=== PATIENT | male | born 1930 | race Caucasian/White ===

== ENCOUNTER 2016-04-26 11:07 | Emergency (ER) | payer OTHER ==
[2016-04-26 12:27] LABS: BASOPHILS % 0.4 (0.0-1.5); EOSINOPHILS % 1.6 % (0.0-6.8); LYMPHOCYTES # 1.5 # k/uL (0.6-4.0); MEAN CORPUSCULAR HEMOGLOBIN 30.6 pg (28.0-34.0); MONOCYTES # 0.6 # k/uL (0.0-0.9); NEUTROPHILS # 4.2 # k/uL (1.4-7.7)
[2016-04-26 12:49] LABS: eGFR (African) > 60; eGFR (Non-African) > 60
[2016-04-26] MEDS ORDERED: cefTRIAXone SODIUM 1 GM VIAL IM ONE (14:55)
[2016-04-26] MEDS ORDERED: Lidocaine 1% 5ml(IM or SUTURE)(PAIN CLINIC) IJ ONE (14:55)
[2016-04-26 16:30] VITALS: BP 161/116
--- NOTE | 2016-04-26 19:47 | Diagnostic Imaging Report ---
[facility] [address] [facility].[address] [address] Report Submission Date: Apr 26, 2016 11:43:08 AM LONGWALL HEADGATE OPERATOR Patient Study Name: LIN MCCONNELL Date: Apr 26, 2016 11:27:46 AM LONGWALL HEADGATE OPERATOR Modality Type: CR Gender: M Description: CHEST : 34 Institution: [facility] Physician: PRAFUL CUNNINGHAM Chest - one-view Clinical history: Shortness of breath since this morning. Findings: Examination of the chest in single portable AP view 04/26/2016 1127 hours with comparison to examination of 04/05/2016 demonstrates bilateral pleural effusions with bibasilar infiltrates or atelectasis. Pulmonary vascular congestion appears decreased since the prior examination. The right hilum is prominent but without significant change. Cardiovascular and mediastinal silhouettes are stable. Impression: 1. Bilateral pleural effusions with bibasilar infiltrates or atelectasis. 2. Aortic atherosclerosis and left ventricular prominence. 3. Decreased congestion since 04/05/2016. Electronically signed on Apr 26, 2016 11:43:08 AM LONGWALL HEADGATE OPERATOR by: Justo ARAYA
--- NOTE | 2016-04-27 19:46 | ED Physician Documentation ---
Dyspnea - HISTORIAN Historian: patient - HPI Stated Complaint: shortness of breath at night time Chief Complaint: Dyspnea Additional Information: at night Onset: days ago (2 weeks) Duration: continues in ED Initiating Event: upper respiratory illness Severity: moderate Exacerbated By: laying flat Associated Symptoms: fever Further Comments: no - ROS CONST: no problems EYES/ENT: none GI/: none NEURO/PSYCH: denies: headache MS/SKIN/LYMPH: none - PAST HX Lung Disease: none Cardiac Disease: none PE Risk Factors: none Surgeries/Procedures: none Other History: other (a fib, depression, lipid) Allergies/Adverse Reactions: Allergies Allergy/AdvReac Type Severity Reaction Status Date / Time prednisone Allergy Intermediate confusion Verified 04/26/16 11:37 Home Medications: Ambulatory Orders Medication Instructions Recorded Acetaminophen [Tylenol] 325 - 650 mg PO Q4H PRN #0 tablet 03/30/16 Enoxaparin Sodium [Lovenox] 100 mg SQ D #4 disp.syrin 04/06/16 Warfarin Sodium [Coumadin] 5 mg PO [id number] #30 tablet 04/06/16 - SOCIAL HX Smoking History: non-smoker Alcohol Use: none Drug Use: none - FAMILY HX Family History: no significant history - VITAL SIGNS Vital Signs: Vital Signs Temp Pulse Resp BP Pulse Ox 94.3 F L 76 16 161/116 91 L 04/26/16 11:24 04/26/16 16:28 04/26/16 16:28 04/26/16 16:28 04/26/16 16:28 - REVIEWED ASSESSMENTS Nursing Assessment Reviewed: Yes Vitals Reviewed: Yes Progress - Results/Orders Results/Orders: cxr, pt/ptt/inr, trop, bnp, ua, cmp, cbc, ekg ordered - Progress Progress: pt. stable in er Critical Care Note - Critical Care Note Total Time (mins): 0 ED Results Lab/Radiology - Lab Results Lab Results: Lab Results 04/26/16 04/26/16 04/26/16 12:15 12:15 12:15 WBC RBC Hgb Hct MCV MCH MCHC RDW Plt Count Neut % (Auto) Lymph % (Auto) [place] % (Auto) Eos % (Auto) Baso % (Auto) Neut # Lymph # [place] # Eos # Baso # Reactive Lymphs % Reactive Lymphs # PT 22.2 Seconds H Seconds (9.7-11.5) INR 2.1 H (0.9-1.1) APTT 29.9 Seconds Seconds (24.5-32.8) Sodium 132 mmol/L L mmol/L (136-145) Potassium 4.1 mmol/L mmol/L (3.5-5.0) Chloride 99 mmol/L mmol/L (98-110) Carbon Dioxide 29 mmol/L mmol/L (20-32) BUN 13 mg/dL mg/dL (10-26) Creatinine 0.6 mg/dL mg/dL (0.4-1.5) Estimated Creat Clear 82 Est GFR ( Amer) > 60 (60 - ) Est GFR (Non-Af Amer) > 60 (60 - ) Glucose 106 mg/dL H mg/dL (70-99) Calcium 9.0 mg/dL mg/dL (8.5-10.5) Total Bilirubin 0.4 mg/dL mg/dL (0.2-1.2) AST 20 U/L U/L (0-41) ALT 13 U/L U/L (0-45) Alkaline Phosphatase 70 U/L U/L (46-116) Troponin I 0.03 ng/mL ng/mL (0.00-0.06) NT-Pro-B Natriuret Pep 6865.3 pg/mL H pg/mL (15.0-450.0) Total Protein 6.0 g/dL g/dL (6.0-8.5) Albumin 3.6 g/dL g/dL (3.0-5.5) 04/26/16 12:15 WBC 6.50 K/ul K/ul (4.00-12.00) RBC 3.86 M/ul L M/ul (3.90-5.20) Hgb 11.8 g/dL L g/dL (12.0-18.0) Hct 37.0 % % (37.0-53.0) MCV 95.8 fl fl (80.0-100.0) MCH 30.6 pg pg (28.0-34.0) MCHC 31.9 g/dL g/dL (30.0-36.0) RDW 13.4 % % (11.3-14.3) Plt Count 331 K/mm3 K/mm3 (130-400) Neut % (Auto) 63.8 % % (39.0-79.0) Lymph % (Auto) 23.4 % % (16.0-50.0) [place] % (Auto) 9.0 % % (0.0-11.0) Eos % (Auto) 1.6 % % (0.0-6.8) Baso % (Auto) 0.4 (0.0-1.5) Neut # 4.2 # k/uL # k/uL (1.4-7.7) Lymph # 1.5 # k/uL # k/uL (0.6-4.0) [place] # 0.6 # k/uL # k/uL (0.0-0.9) Eos # 0.1 # k/uL # k/uL (0.0-0.6) Baso # 0.0 # k/uL # k/uL (0.0-0.5) Reactive Lymphs % 2.0 % % (0.0-5.0) Reactive Lymphs # 0.1 # k/uL # k/uL (0.0-0.8) PT INR APTT Sodium Potassium Chloride Carbon Dioxide BUN Creatinine Estimated Creat Clear Est GFR ( Amer) Est GFR (Non-Af Amer) Glucose Calcium Total Bilirubin AST ALT Alkaline Phosphatase Troponin I NT-Pro-B Natriuret Pep Total Protein Albumin - Radiology Radiology Impressions: cxr shows bilateral pleural effusions - Orders Orders: ED Orders Category Date Time Status CHEST 1 VIEW [RAD] Routine Exams 04/26/16 Completed BNP [NT-proBNP] Routine Lab 04/26/16 12:15 Completed CBC/PLATELET/DIFF Routine Lab 04/26/16 12:15 Completed CMP Routine Lab 04/26/16 12:15 Completed PT-INR Routine Lab 04/26/16 12:15 Completed PTT Routine Lab 04/26/16 12:15 Completed TROPONIN I (cTnI) Routine Lab 04/26/16 12:15 Completed Lidocaine 1% 5ml(IM or SUTURE) [Xylocaine] Med 04/26/16 14:55 Discontinued 50 mg IJ NOW ONE cefTRIAXone SODIUM [Rocephin] Med 04/26/16 14:55 Discontinued 1 gm IM NOW ONE EKG WITH COMPARISON Routine Ther 04/26/16 Ordered Dyspnea Physical Exam - EXAM General Appearance: no acute distress, alert EENT: eye inspection normal, ENT inspection normal, pharynx normal, no signs of dehydration, GERMAINE, no nystagmus, TM's nml Neck: nml inspection Respiratory: no resp. distress, rales (bases) CVS: reg. rate & rhythm, no murmur Abdomen: non-tender, no organomegaly, no distention Skin: color nml, no rash Extremities: non-tender, normal range of motion Neuro/Psych: oriented x3, CN's nml as tested, motor nml, sensation nml, mood/ affect nml Discharge Clincal Impression: Pneumonia Qualifiers: Pneumonia type: due to unspecified organism Laterality: bilateral Lung location : lower lobe of lung Qualified Code(s): J18.9 - Pneumonia, unspecified organism Referrals: Shakeel Ellis MD [Primary Care Provider] - 2 Days Additional Instructions: given rocephin im in er, home with scripts Home Medications: Ambulatory Orders Acetaminophen [Tylenol] 325 - 650 mg PO Q4H PRN #0 tablet 03/30/16 Enoxaparin Sodium [Lovenox] 100 mg SQ D #4 disp.syrin 04/06/16 Warfarin Sodium [Coumadin] 5 mg PO [id number] #30 tablet 04/06/16 Comments: discharged home with scripts Condition: Stable Disposition: 01 HOME, SELF-CARE Decision to Admit: NO Decision Time: 16:20
== END 2016-04-26 15:50 | disposition home or self-care (01) ==
LOC: ED 11:07
DX: J18.9 Pneumonia, unspecified organism (principal)
CPT/HCPCS: 71010; 80053; 83880; 84484; 85025; 85610; 85730; J0696; 96372; 99283

== ENCOUNTER 2016-04-29 15:16 | Emergency (ER) | payer OTHER ==
[2016-04-29 15:36] LABS: BASOPHILS % 0.4 (0.0-1.5); EOSINOPHILS % 1.9 % (0.0-6.8); LYMPHOCYTES # 1.5 # k/uL (0.6-4.0); MEAN CORPUSCULAR HEMOGLOBIN 30.4 pg (28.0-34.0); MONOCYTES # 0.7 # k/uL (0.0-0.9); NEUTROPHILS # 4.7 # k/uL (1.4-7.7)
[2016-04-29 15:53] LABS: eGFR (African) > 60; eGFR (Non-African) > 60
--- NOTE | 2016-04-29 15:53 | ED Physician Documentation ---
General Adult - HISTORIAN Historian: patient, other (old records) - HPI Stated Complaint: "Shortness of Breath" Chief Complaint: General Adult Additional Information: Says he still has pneumonia. Can hear noises when he breathes at night. Saw Dr. Renee on 04/27 and started amoxicillin. Pulse ox 95% on RA. Talks non-stop. - ROS CONST: denies: fever - PAST HX Past History: CHF Allergies/Adverse Reactions: Allergies Allergy/AdvReac Type Severity Reaction Status Date / Time prednisone Allergy Intermediate confusion Verified 04/26/16 11:37 Home Medications: Ambulatory Orders Medication Instructions Recorded Acetaminophen [Tylenol] 325 - 650 mg PO Q4H PRN #0 tablet 03/30/16 Amoxicillin/Potassium Clav 1 each PO DAILY 04/29/16 [Augmentin 875-125 Tablet] Furosemide [Furosemide] 20 mg PO DAILY 04/29/16 Warfarin Sodium [Warfarin Sodium] 2 mg PO DAILY 04/29/16 - SOCIAL HX Smoking History: non-smoker - FAMILY HX Family History: No - VITAL SIGNS Vital Signs: Vital Signs Temp Pulse Resp BP Pulse Ox 97 F L 94 H 18 162/93 96 04/29/16 15:20 04/29/16 15:20 04/29/16 15:20 04/29/16 15:20 04/29/16 15:20 - REVIEWED ASSESSMENTS Nursing Assessment Reviewed: Yes Vitals Reviewed: Yes Progress - Progress Progress: Portable view of chest Clinical history: Short of breath Findings: Comparison is made to prior study. The heart size is mildly enlarged with unchanged mild pulmonary venous congestion. There unchanged bibasal atelectasis with increasing right pleural effusion. There is an unchanged left pleural effusion. No pneumothorax. Bilateral pleural effusions with bibasal atelectasis. The effusion has increased on the right Electronically signed on Apr 29, 2016 3:50:23 PM TUNE UP MECHANIC by: Israel Nolan [id number], discussed with Dr. Ellis ED Results Lab/Radiology - Lab Results Lab Results: Lab Results 04/29/16 15:28 WBC 7.20 K/ul K/ul (4.00-12.00) RBC 4.08 M/ul M/ul (3.90-5.20) Hgb 12.4 g/dL g/dL (12.0-18.0) Hct 39.3 % % (37.0-53.0) MCV 96.2 fl fl (80.0-100.0) MCH 30.4 pg pg (28.0-34.0) MCHC 31.6 g/dL g/dL (30.0-36.0) RDW 13.5 % % (11.3-14.3) Plt Count 340 K/mm3 K/mm3 (130-400) Neut % (Auto) 65.8 % % (39.0-79.0) Lymph % (Auto) 20.7 % % (16.0-50.0) [place] % (Auto) 10.0 % % (0.0-11.0) Eos % (Auto) 1.9 % % (0.0-6.8) Baso % (Auto) 0.4 (0.0-1.5) Neut # 4.7 # k/uL # k/uL (1.4-7.7) Lymph # 1.5 # k/uL # k/uL (0.6-4.0) [place] # 0.7 # k/uL # k/uL (0.0-0.9) Eos # 0.1 # k/uL # k/uL (0.0-0.6) Baso # 0.0 # k/uL # k/uL (0.0-0.5) Reactive Lymphs % 1.3 % % (0.0-5.0) Reactive Lymphs # 0.1 # k/uL # k/uL (0.0-0.8) - Orders Orders: ED Orders Category Date Time Status CHEST 1 VIEW [RAD] Stat Exams 04/29/16 Ordered BNP [NT-proBNP] Stat Lab 04/29/16 15:28 Received CBC/PLATELET/DIFF Routine Lab 04/29/16 15: Completed CMP Routine Lab 04/29/16 15: Received URINALYSIS Routine Lab 04/29/16 Ordered General Adult Physical Exam - PHYSICAL EXAM GENERAL APPEARANCE: smells of urine. shoes caked with dirt EENT: eye inspection normal, ENT inspection normal, pharynx normal NECK: normal inspection, supple RESPIRATORY: no resp distress, breath sounds normal CVS: reg rate & rhythm, heart sounds normal, no murmur ABDOMEN: soft, normal bowel sounds, non-tender RECTAL: deferred BACK: normal inspection SKIN: warm/dry, normal color EXTREMITIES: no evidence of injury, edema (1+ ameena ankles, R>L) NEURO: CN's nml as tested, motor nml, sensation nml, cognition normal Discharge Clincal Impression: Pneumonia Qualifiers: Pneumonia type: due to unspecified organism Laterality: bilateral Lung location : lower lobe of lung Qualified Code(s): J18.9 - Pneumonia, unspecified organism Additional Instructions: Continue the amoxicillin. Follow up with Dr. Ellis as needed. Home Medications: Ambulatory Orders Acetaminophen [Tylenol] 325 - 650 mg PO Q4H PRN #0 tablet 03/30/16 Amoxicillin/Potassium Clav [Augmentin 875-125 Tablet] 1 each PO DAILY 04/29/16 Furosemide [Furosemide] 20 mg PO DAILY 04/29/16 Warfarin Sodium [Warfarin Sodium] 2 mg PO DAILY 04/29/16 Condition: Fair Disposition: HOME, SELF-CARE Decision to Admit: NO Decision Time: 16:07
[2016-04-29 16:55] VITALS: BP 148/68
--- NOTE | 2016-04-29 17:05 | Diagnostic Imaging Report ---
~ [facility] [address] [facility] [address] [place], [place]. [address] ~ ~ ~ ~ Report Submission Date: Apr 29, 2016 3:50:23 PM PROGRAM ADMIN Patient ~ Study Name: LIN MCCONNELL ~ Date: Apr 29, 2016 3:37:21 PM PROGRAM ADMIN ~ Modality Type: CR Gender: M ~ Description: CHEST : 32 ~ Institution: [facility] Physician: ROBERT CEDENO ~ ~ ~ ~ Portable view of chest Clinical history: Short of breath Findings: Comparison is made to prior study. The ~heart size is mildly enlarged with unchanged mild pulmonary venous congestion. There unchanged bibasal atelectasis with increasing right pleural effusion. There is an unchanged left pleural effusion. No pneumothorax. Bilateral pleural effusions with bibasal atelectasis. The effusion has increased on the right ~ Electronically signed on Apr 29, 2016 3:50:23 PM PROGRAM ADMIN by: Israel ARAYA
== END 2016-04-29 16:35 | disposition home or self-care (01) ==
LOC: ED 15:16
DX: J18.9 Pneumonia, unspecified organism (principal)
CPT/HCPCS: 71010; 80053; 83880; 85025; 99284

== ENCOUNTER 2016-05-14 16:24 | Emergency (ER) | payer OTHER ==
--- NOTE | 2016-05-14 16:34 | ED Physician Documentation ---
General Adult - HISTORIAN Historian: patient, paramedics - HPI Stated Complaint: fall Chief Complaint: General Adult Onset: minutes Timing: better Severity: mild Further Comments: yes (Pt is an 86 yo male who slid from his chair at home and called EMS for lift assist. EMS found pt's environment to be extremely uncared for. Pt had numerous cats and the house appeared not to have been cleaned for ages. Pt was brought to ER in order to try to facilitate change in pt's unsafe environment and living conditions. Pt c/o chronic generalized muscle ache/ arthritis. No sob, chest pain or other complaintss. Pt has a decubitus ulcer on his R buttock. Pt states that he has numerous home health services, but these appear inadequate per EMT report.) - ROS CONST: other (pt denies) EYES/ENT: none CVS/RESP: none GI/: none MS/SKIN/LYMPH: other (decubitus ulcer buttock; generalized joint pain/arthritis) - PAST HX Past History: other (GERD, Anxiety, OA, BPH, decubitus ulcer, PE) Allergies/Adverse Reactions: Allergies Allergy/AdvReac Type Severity Reaction Status Date / Time prednisone Allergy Intermediate confusion Verified 05/14/16 16:33 Home Medications: Ambulatory Orders Medication Instructions Recorded Acetaminophen [Tylenol] 325 - 650 mg PO Q4H PRN #0 tablet 03/30/16 Amoxicillin/Potassium Clav 1 each PO DAILY 04/29/16 [Augmentin 875-125 Tablet] Furosemide [Furosemide] 20 mg PO DAILY 04/29/16 Warfarin Sodium [Warfarin Sodium] 2 mg PO DAILY 04/29/16 - SOCIAL HX Smoking History: non-smoker Alcohol Use: none Drug Use: none - FAMILY HX Family History: Yes (CAD) - VITAL SIGNS Vital Signs: Vital Signs Temp Pulse Resp BP Pulse Ox 148/68 04/29/16 16:35 - REVIEWED ASSESSMENTS Nursing Assessment Reviewed: Yes Vitals Reviewed: Yes Progress - Progress Progress: Report on pt living condition called to Adult Abuse and Neglect Hotline. . Case d/w Pamela who will initiate investigation. Decub ulcer dressed in ER. Long discussion with pt encouraging move to prison. d/w pcp. General Adult Physical Exam - PHYSICAL EXAM GENERAL APPEARANCE: unkempt EENT: eye inspection normal, pharynx normal, other (poor dentition) NECK: normal inspection, supple RESPIRATORY: no resp distress, chest non-tender, breath sounds normal CVS: reg rate & rhythm, heart sounds normal ABDOMEN: soft, no organomegaly, normal bowel sounds BACK: normal inspection, no CVA tenderness SKIN: other (2nd degree decubitus ulcer on R buttock, 2 cm with 8 cm erythema surrounding ulcer) EXTREMITIES: non-tender, normal range of motion NEURO: oriented X3, motor nml, sensation nml Discharge Clincal Impression: Fall from chair Qualifiers: Encounter type: initial encounter Qualified Code(s): W07.XXXA - Fall from chair , initial encounter Decubitus ulcer Qualifiers: Pressure ulcer location: buttock Pressure ulcer stage: stage 2 Laterality: right Qualified Code(s): L89.312 - Pressure ulcer of right buttock, stage 2 Referrals: Shakeel Ellis MD [Primary Care Provider] - Home Medications: Ambulatory Orders Acetaminophen [Tylenol] 325 - 650 mg PO Q4H PRN #0 tablet 03/30/16 Amoxicillin/Potassium Clav [Augmentin 875-125 Tablet] 1 each PO DAILY 04/29/16 Furosemide [Furosemide] 20 mg PO DAILY 04/29/16 Warfarin Sodium [Warfarin Sodium] 2 mg PO DAILY 04/29/16 Condition: Stable Disposition: HOME, SELF-CARE Decision to Admit: NO Decision Time: 17:59
[2016-05-14 18:18] VITALS: BP 133/80
== END 2016-05-14 18:15 | disposition home or self-care (01) ==
LOC: ED 16:24
DX: L89.312 Pressure ulcer of right buttock, stage 2 (principal); W07.XXXA Fall from chair, initial encounter; Y93.9 Activity, unspecified; Y99.9 Unspecified external cause status
CPT/HCPCS: 99282; 99283

== ENCOUNTER 2016-05-18 17:14 | Inpatient (IN) | payer OTHER ==
[2016-05-18 18:00] LABS: AMORPHOUS SEDIMENT,UR FEW (NEGATIVE); APPEARANCE,URINE CLEAR (CLEAR); COLOR,URINE YELLOW (YELLOW); OCCULT BLOOD,URINE NEGATIVE (NEGATIVE); PH URINE 6.5 (5.0 - 8.0)
--- NOTE | 2016-05-18 18:13 | ED Physician Documentation ---
Male Genitourinary Problems - HISTORIAN Historian: patient - HPI Stated Complaint: Urinary Retention Chief Complaint: Male Genitourinary Problems Onset: days ago (prog passt 4-5 days) Duration: continues in ED, worse Context: other (pt reportedly sits in house most of day and noct w/veryu many cats-house reportedly quite unsanitary. pt recently in [facility] DR MIRANDA for pneumonia. has minimal sob now.). 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 denies: diabetes Type 1 Surgeries/Procedures: other (pcta) - SOCIAL HX Smoking History: non-smoker Alcohol Use: none Drug Use: none - FAMILY HX Family History: none - REVIEWED ASSESSMENTS Nursing Assessment Reviewed: Yes Vitals Reviewed: Yes - HPI Additional Information: progressive dysuria unable today. sig leg edema prog to genital area-scrotal and penile edema. suárez cath prod 800cc urine-pt relates scanty yesterday. ( Bobo Kelley) - PAST HX Allergies/Adverse Reactions: Allergies Allergy/AdvReac Type Severity Reaction Status Date / Time prednisone Allergy Intermediate confusion Verified 06/10/16 22:14 Home Medications: Ambulatory Orders Medication Instructions Recorded Furosemide [Furosemide] 20 mg PO DAILY 04/29/16 Warfarin Sodium [Warfarin Sodium] 2 mg PO DAILY 04/29/16 Metoprolol Tartrate [Lopressor] 12.5 mg PO D #30 tablet 05/24/16 Warfarin Sodium [Coumadin] 2.5 mg PO 1800 #30 tablet 05/24/16 - VITAL SIGNS Vital Signs: Vital Signs Temp Pulse Resp BP Pulse Ox 98.7 F 90 22 120/62 98 05/24/16 13:33 05/24/16 13:33 05/24/16 13:33 05/24/16 13:33 05/24/16 14:00 (WILIAN JONES) (Bobo Kelley) Progress - Progress Progress: BNP 9800+. Na 130. WBC 12.8 1919, spoke with Dr. Miranda. Will admit pt to Dr. Miranda. (WILIAN JONES) care turned to WILIAN 1910 HRS. discussed case w/ her. (Bobo Kelley) Male Genitourinary Problems - EXAM General Appearance: moderate distress. No: anxious Abdomen: non-tender EENT: eye inspection normal (poor genl hygiene-reported poor nutritional and erratec food intake. has home health approx q/week) Neck: nml inspection. No: lymphadenopathy Respiratory: no resp distress, breath sounds normal (mild basal rales) CVS: reg rate & rhythm, heart sounds normal Back: non-tender Extremities: no calf tenderness, pelvis stable. No: normal range of motion, non -tender, normal inspection, no pedal edema, normal capillary refill Neuro/Psych: motor nml, sensation nml, mood/affect nml, cognition normal Skin: warm/dry, normal color, other (prev mentioned severe dep edema up to hips- -apparently sits w/o exercise most all the time.). No: cyanosis, diaphoresis Discharge Home Medications: Ambulatory Orders Furosemide [Furosemide] 20 mg PO DAILY 04/29/16 Warfarin Sodium [Warfarin Sodium] 2 mg PO DAILY 04/29/16 Metoprolol Tartrate [Lopressor] 12.5 mg PO D #30 tablet 05/24/16 Warfarin Sodium [Coumadin] 2.5 mg PO 1800 #30 tablet 05/24/16 Condition: Stable Disposition: HOME HEALTH SERVICE
[2016-05-18 18:15] LABS: BASOPHILS % 0.1 (0.0-1.5); MEAN CORPUSCULAR HEMOGLOBIN 29.7 pg (28.0-34.0); MONOCYTES # 0.6 # k/uL (0.0-0.9); MONOCYTES % 4.8 % (0.0-11.0)
[2016-05-18 18:33] LABS: eGFR (African) > 60; eGFR (Non-African) > 60
[2016-05-18] MEDS ORDERED: FUROSEMIDE 20 MG/2 ML VIAL IVP ONE (19:20)
[2016-05-18] MEDS ORDERED: FUROSEMIDE 40 MG/4 ML VIAL ONE (19:22)
[2016-05-18] MEDS ORDERED: FUROSEMIDE 20 MG/2 ML VIAL ONE (19:23)
[2016-05-18] MEDS: SALINE FLUSH 10 ML DISP.SYRIN IV SCH (19:33)
[2016-05-18] MEDS ORDERED: WARFARIN SODIUM 1 MG TABLET PO ONE (19:44)
--- NOTE | 2016-05-18 20:02 | Diagnostic Imaging Report ---
[facility] [address] [facility].[address] [address] Report Submission Date: May 18, 2016 7:37:13 PM PERFORMANCE ENGINEER Patient Study Name: LIN MCCONNELL Date: May 18, 2016 7:28:18 PM PERFORMANCE ENGINEER Modality Type: CR Gender: M Description: CHEST : 34 Institution: [facility] Physician: ROBERT CEDENO Chest -one view CLINICAL HISTORY: Congestive heart failure. FINDINGS: Examination of the chest in single portable AP view 05/18/2016 1928 hr with comparison to examination 04/29/2016 demonstrates bilateral pleural effusions with bibasilar atelectasis. The effusions appear slightly decreased when compared to the prior examination. Pulmonary vascular congestion with perivascular and peribronchial cuffing appears slightly worse since the prior study. Cardiovascular and mediastinal silhouettes are stable. IMPRESSION: Slight decrease in pleural effusions with increasing pulmonary vascular congestion. Findings are consistent with congestive heart failure. Electronically signed on May 18, 2016 7:37:13 PM PERFORMANCE ENGINEER by: Justo ARAYA
[2016-05-18 21:21] VITALS: BMI 23.9
[2016-05-19] MEDS ORDERED: SALINE FLUSH 10 ML DISP.SYRIN IVF ONE ×3 (04:09→09:08)
[2016-05-19] MEDS ORDERED: FUROSEMIDE 20 MG TABLET PO ONE (04:09)
[2016-05-19] MEDS ORDERED: WARFARIN SODIUM 1 MG TABLET PO ONE ×2 (04:10→19:43)
[2016-05-19] MEDS: SALINE FLUSH 10 ML DISP.SYRIN IV SCH ×2 (08:56→23:48)
[2016-05-19] MEDS: BUSPIRONE HCL 5 MG TABLET PO SCH ×3 (08:56→17:46)
[2016-05-19] MEDS: MONTELUKAST SODIUM 10 MG TABLET PO SCH (08:57)
[2016-05-19] MEDS ORDERED: WARFARIN SODIUM 2 MG PO SCH (09:00)
[2016-05-19] MEDS ORDERED: FUROSEMIDE 20 MG TABLET PO SCH (09:00)
[2016-05-19] MEDS ORDERED: FUROSEMIDE 20 MG/2 ML VIAL ONE (09:01)
[2016-05-19] MEDS: FUROSEMIDE 20 MG/2 ML VIAL IVP SCH ×2 (09:10→23:47)
[2016-05-19 09:21] LABS: eGFR (African) > 60; eGFR (Non-African) > 60
[2016-05-19] MEDS: traMADol HCL 50 MG TABLET PO PRN (12:55)
[2016-05-19] MEDS: ACETAMINOPHEN 500 MG TABLET PO PRN (12:55)
--- NOTE | 2016-05-19 15:59 | History and Physical Report ---
History of Present Illnes - History of Present Illness Reason for Visit: Dyspnea History of Present Illness: 86-yo white male who has had a history of increase swelling and pedal edema over the last month. Patient states that he has been having some increase SOB and ESCOTO over the last several day. Has been having some orthopnic symptoms. Patient denies any chest pain or pressure. He has not had any previous history of CHF. Patient does have his feet hanging down a lot and it was felt that the pedal edema was dependent in nature. Patient started to have some swelling to his scrotum and penis. He states that this was making it difficult for him to urinate and subsequently came to the ED for further evaluation and treatment. In the ED he was found to have some CHF and was hypoxic and admitted for further evaluation and treatment. - Past Medical History Cardiac: denies: CAD, CHF, HTN Pulmonary: Pulmonary embolus. denies: Asthma, Bronchitis, COPD, Previously intubated, Pneumonia, Sleep Apnea, Other Gastrointestinal: GERD Psych: Anxiety Musculoskeletal: Osteoarthritis ENT: Allergic rhinitis Renal/: Benign prostatic enlarg. - Past Surgical History Past Surgical History: Hernia Repair (Inguinal), TURP, Other (angioplasty) - Past Family History Mother Family History: CAD, (85) Father Family History: Cancer (? gastric), (62) Brother 1 Family History: None - Past Social History Smoke: No Alcohol: None Drugs: None Lives: With Family (Brother) - Health Maintenance Health Maintenance: Pneumococcal Vaccine (07/18/2005) Influenza Vaccine: No Pneumonia Vaccine: Yes Resuscitation Status: Resusciation Status Resuscitation Status Full Code - Unable to Obtain History Unable to Obtain: No Review of Systems - Review of Systems Constitutional: Weakness (generalized). negative: Fever, Chills Eyes: negative: pain, vision change ENT: negative: Ear Pain, Ear Discharge, Nose Pain, Nose Discharge, Nose Congestion, Throat Pain, Throat Swelling Respiratory: Cough, Dry, Shortness of Breath, SOB with Excertion. negative: Hemoptysis, Pleuritic Pain, Sputum, Wheezing Cardiovascular: Edema. negative: Chest Pain, Palpitations, Orthopnea, Paroxysmal Noc. Dyspnea Gastrointestinal: negative: Nausea, Vomiting, Abdominal Pain, Diarrhea, Constipation, Melena, Hematochezia Genitourinary: negative: Dysuria, Frequency Musculoskeletal: negative: Neck Pain, Shoulder Pain Skin: negative: Rash Neurological: Weakness, Confusion. negative: Numbness, Incoordination, Change in Speech - Medications/Allergies Allergies/Adverse Reactions: Allergies Allergy/AdvReac Type Severity Reaction Status Date / Time prednisone Allergy Intermediate confusion Verified 06/10/16 22:14 Current Inpatient Medications: Current Inpatient Medications Acetaminophen (Tylenol Extra Strength) 500 mg PO TID PRN PRN Reason: Fever >101 Last Admin: 05/19/16 12:55 Dose: 500 mg Buspirone HCl (Buspar) 5 mg PO TID [facility] Last Admin: 05/19/16 13:13 Dose: 5 mg Furosemide (Lasix) 20 mg IVP Q12 [facility] Last Admin: 05/19/16 09:10 Dose: 20 mg Miscellaneous (Warfarin Sodium [Warfarin Sodium]) 2 mg PO DAILY [facility] Last Admin: 05/19/16 13:14 Dose: Not Given Montelukast Sodium (Singulair) 10 mg PO DAILY [facility] Last Admin: 05/19/16 08:57 Dose: 10 mg Sodium Chloride (Normal Saline Flush) 3 ml IV BID [facility] Last Admin: 05/19/16 08:56 Dose: 3 ml Tramadol HCl (Ultram) 50 mg PO Q4 PRN PRN Reason: PAIN Last Admin: 05/19/16 12:55 Dose: 50 mg Exam - Exam Vital Signs: Vital Signs (72 hours) 05/18/16 05/18/16 05/18/16 19:46 20:00 20:25 Temperature 98.0 F Pulse Rate 92 H Pulse Rate [ 78 78 Right Pulse ox] Respiratory 18 18 Rate Blood Pressure 128/97 128/97 [Left Arm] Blood Pressure 152/87 [Right Arm] O2 Sat by Pulse 92 92 Oximetry 05/18/16 05/18/16 05/18/16 21:00 22:00 23:00 Temperature Pulse Rate 94 H 98 H 98 H Pulse Rate [ Right Pulse ox] Respiratory Rate Blood Pressure [Left Arm] Blood Pressure [Right Arm] O2 Sat by Pulse Oximetry 05/18/16 05/18/16 05/19/16 23:25 23:46 00:00 Temperature 98.4 F Pulse Rate 95 H Pulse Rate [ 84 Right Pulse ox] Respiratory Rate Blood Pressure 147/82 [Left Arm] Blood Pressure [Right Arm] O2 Sat by Pulse 92 92 Oximetry 0205/19/16 05/19/16 01:00 02:00 03:00 Temperature 98.0 F Pulse Rate 90 94 H 99 H Pulse Rate [ 84 Right Pulse ox] Respiratory Rate Blood Pressure 128/60 [Left Arm] Blood Pressure [Right Arm] O2 Sat by Pulse 94 Oximetry 05/19/16 05/19/16 05/19/16 04:00 05:00 05:43 Temperature 98.3 F Pulse Rate 97 H 93 H Pulse Rate [ 99 H Right Pulse ox] Respiratory 18 Rate Blood Pressure 133/70 [Left Arm] Blood Pressure [Right Arm] O2 Sat by Pulse 97 Oximetry 05/19/16 05/19/16 05/19/16 05:58 07:00 08:00 Temperature Pulse Rate 82 78 96 H Pulse Rate [ 90 Right Pulse ox] Respiratory 18 Rate Blood Pressure [Left Arm] Blood Pressure [Right Arm] O2 Sat by Pulse 97 Oximetry 05/19/16 05/19/16 05/19/16 09:00 10:00 11:00 Temperature 97.3 F L Pulse Rate 91 H 79 85 Pulse Rate [ 79 79 Right Pulse ox] Respiratory 20 20 Rate Blood Pressure 126/66 [Left Arm] Blood Pressure [Right Arm] O2 Sat by Pulse 96 96 Oximetry 05/19/16 05/19/16 05/19/16 12:00 13:00 14:00 Temperature 96.6 F L Pulse Rate 88 95 H 99 H Pulse Rate [ 99 H Right Pulse ox] Respiratory 20 Rate Blood Pressure 99/57 [Left Arm] Blood Pressure [Right Arm] O2 Sat by Pulse 99 Oximetry 05/19/16 05/19/16 14:30 15:47 Temperature Pulse Rate 99 H 85 Pulse Rate [ 99 H Right Pulse ox] Respiratory 20 Rate Blood Pressure [Left Arm] Blood Pressure [Right Arm] O2 Sat by Pulse 99 Oximetry General: Alert, Oriented to Person, Oriented to Place, Oriented to Time, Cooperative, Mild distress HEENT: Atraumatic, PERRLA, Mouth Mucous membr. moist/[place], Nose Mucous membr. moist/[place]. No: Hearing Grossly Normal (decreased) Neck: Normal Range of Motion. No: Stridor, Rigidity, Lymphadenopathy Carotids: WNL Thyroid: WNL Lungs: Normal air movement, Speaks full Sentences, Rales (1/2 way up posterior lungs bilaterally). No: Wheezes, Rhonchi Cardiovascular: Regular rate, Normal S1, Normal S2, No murmurs. No: Gallops, Rubs, Murmur Abdomen: Normal bowel sounds, Soft, No tenderness, No hepatospenomegaly, No masses Male Genitourinary: Scrotal Edema, Penile Edema Integumentary: Normal, [place], Warm, Dry Extremities: No clubbing, No cyanosis, Other (2-3 plus edema) Neurological: Normal speech, Strength Equal Bilat, Normal tone, Sensation intact , Cranial nerves 3-12 NL, Reflexes 2+. No: Normal gait Psych/Mental Status: Mental status NL, Mood NL, Appropriate Affect, Intact Judgment - Laboratory Results Laboratory Results: Laboratory Results 05/19/16 05/19/16 09:00 09:00 Sodium 142 Potassium 3.4 L Chloride 96 L Carbon Dioxide 31 BUN 12 Creatinine 0.4 Estimated Creat Clear 147 Est GFR ( Amer) > 60 Est GFR (Non-Af Amer) > 60 Glucose 106 H Calcium 8.8 Troponin I < 0.03 L Assessment/Plan - Assessment/Plan (1) CHF (congestive heart failure) Status: Acute Qualifiers: Congestive heart failure type: systolic Congestive heart failure chronicity : acute Qualified Code(s): I50.21 - Acute systolic (congestive) heart failure Assessment: Will start IV lasix, daily weight. I will get troponin to look for possible [place]. Will get ECHO. Supplemental oxygen as needed. (2) Anticoagulant long-term use Status: Acute Narrative Support Text: Recent DVT with PE. Subtherapeutic INR, patient may not have been taking coumdadin as prescribed. Will restart at current dose and check. (3) Gait disturbance Status: Acute Assessment: Will encourage to be up and ambulate. Patient has recently finished home health. VTE Assessment - RISK FACTOR SCORE VTE RISK FACTOR SCORES: AGE OVER 60 YEARS, CONGESTIVE HEART FAILURE OR MYOCARDIAL INFARCTION, LEG SWELLING, ULCERS, VARICOSE VEINS
[2016-05-19] MEDS ORDERED: WARFARIN SODIUM 1 MG TABLET PO SCH (20:00)
[2016-05-19] MEDS ORDERED: PHARMACY KEY 1 EACH EACH MC ONE (23:12)
[2016-05-19] MEDS ORDERED: WARFARIN SODIUM 2.5 MG TABLET PO ONE (23:30)
[2016-05-20] MEDS ORDERED: SALINE FLUSH 10 ML DISP.SYRIN IVF ONE ×2 (04:17→10:10)
[2016-05-20 07:22] LABS: eGFR (African) > 60; eGFR (Non-African) > 60
[2016-05-20] MEDS: MONTELUKAST SODIUM 10 MG TABLET PO SCH (09:27)
[2016-05-20] MEDS: BUSPIRONE HCL 5 MG TABLET PO SCH ×3 (09:27→17:45)
[2016-05-20] MEDS ORDERED: FUROSEMIDE 20 MG/2 ML VIAL ONE (10:10)
[2016-05-20] MEDS: FUROSEMIDE 20 MG/2 ML VIAL IVP SCH (10:11)
[2016-05-20] MEDS: SALINE FLUSH 10 ML DISP.SYRIN IV SCH ×2 (10:11→21:00)
[2016-05-20] MEDS ORDERED: WARFARIN SODIUM 1 MG TABLET PO ONE (11:13)
[2016-05-20] MEDS ORDERED: POTASSIUM CHLORIDE 10 MEQ TABLET.ER PO SCH ×2 (12:00→16:52)
[2016-05-20] MEDS ORDERED: POTASSIUM CHLORIDE 10 MEQ TABLET.ER PO ONE ×2 (12:47→17:42)
--- NOTE | 2016-05-20 13:53 | Inpatient Progress Note ---
Subjective - Required Recertification Statement I anticipate X number of days because-include discharge plan: 2 day - Review of Systems Events since last encounter: patient stated his breathing seems to be getting better at this time. Patient does complain of generalized arthritic pain. Patient denies any chest pain chest pressure. Cardiovascular: Denies: Chest Pain, Palpitations Gastrointestinal: Denies: Nausea, Vomiting Objective - Exam Vitals and I&O: Vital Signs Temp 99.3 F 05/20/16 13:25 Pulse 100 H 05/20/16 13:25 Resp 18 05/20/16 13:25 BP 123/54 05/20/16 13:25 Pulse Ox 93 05/20/16 13:25 Intake & Output 05/19/16 05/20/16 05/20/16 23:59 11:59 23:59 Intake Total 1260 200 60 Output Total 1450 1600 Balance 1260 -1250 -1540 Intake: Oral 1260 200 60 Output: Urine 1450 1600 Other: Voiding Method Indwelling Catheter # Bowel Movements 0 General: Alert, Oriented to Person, Oriented to Place, Oriented to Time, Cooperative, Mild distress Neck: Supple Lungs: Normal air movement, Speaks full Sentences, Rales (rales in 6the bases bilat). No: Wheezes, Rhonchi Cardiovascular: Regular rate, Normal S1, Normal S2, No murmurs (6) Abdomen: Normal bowel sounds, Soft, No tenderness Extremities: Other (2 plus edema) Skin: Normal ((), [place], Warm Neurological: Normal gait, Normal speech - Results Results: Laboratory Results WBC 12.80 K/ul (4.00-12.00) H 05/18/16 18:10 RBC 4.44 M/ul (3.90-5.20) 05/18/16 18:10 Hgb 13.2 g/dL (12.0-18.0) 05/18/16 18:10 Hct 41.5 % (37.0-53.0) 05/18/16 18:10 MCV 93.5 fl (80.0-100.0) 05/18/16 18:10 MCH 29.7 pg (28.0-34.0) 05/18/16 18:10 MCHC 31.8 g/dL (30.0-36.0) 05/18/16 18:10 RDW 13.7 % (11.3-14.3) 05/18/16 18:10 Plt Count 178 K/mm3 (130-400) 05/18/16 18:10 Neut % (Auto) 85.9 % (39.0-79.0) H 05/18/16 18:10 Lymph % (Auto) 7.4 % (16.0-50.0) L 05/18/16 18:10 [place] % (Auto) 4.8 % (0.0-11.0) 05/18/16 18:10 Eos % (Auto) 1.0 % (0.0-6.8) 05/18/16 18:10 Baso % (Auto) 0.1 (0.0-1.5) 05/18/16 18:10 Neut # 11.0 # k/uL (1.4-7.7) H 05/18/16 18:10 Lymph # 1.0 # k/uL (0.6-4.0) 05/18/16 18:10 [place] # 0.6 # k/uL (0.0-0.9) 05/18/16 18:10 Eos # 0.1 # k/uL (0.0-0.6) 05/18/16 18:10 Baso # 0.0 # k/uL (0.0-0.5) 05/18/16 18:10 Reactive Lymphs % 0.9 % (0.0-5.0) 05/18/16 18:10 Reactive Lymphs # 0.1 # k/uL (0.0-0.8) 05/18/16 18:10 PT 17.1 Seconds (9.7-11.5) H 05/20/16 06:35 INR 1.6 (0.9-1.1) H 05/20/16 06:35 Sodium 133 mmol/L (136-145) L 05/20/16 06:35 Potassium 3.3 mmol/L (3.5-5.0) L 05/20/16 06:35 Chloride 102 mmol/L (98-110) 05/20/16 06:35 Carbon Dioxide 30 mmol/L (20-32) 05/20/16 06:35 BUN 9 mg/dL (10-26) L 05/20/16 06:35 Creatinine 0.4 mg/dL (0.4-1.5) 05/20/16 06:35 Estimated Creat Clear 147 05/20/16 06:35 Est GFR ( Amer) > 60 (60-) 05/20/16 06:35 Est GFR (Non-Af Amer) > 60 (60-) 05/20/16 06:35 Glucose 111 mg/dL (70-99) H 05/20/16 06:35 Calcium 8.3 mg/dL (8.5-10.5) L 05/20/16 06:35 Total Bilirubin 0.7 mg/dL (0.2-1.2) 05/18/16 18:10 AST 30 U/L (0-41) 05/18/16 18:10 ALT 32 U/L (0-45) 05/18/16 18:10 Alkaline Phosphatase 86 U/L (46-116) 05/18/16 18:10 Troponin I < 0.03 ng/mL (0.03-0.06) L 05/19/16 09:00 NT-Pro-B Natriuret Pep 9783.1 pg/mL (15.0-450.0) H 05/18/16 18:10 Total Protein 6.5 g/dL (6.0-8.5) 05/18/16 18:10 Albumin 3.8 g/dL (3.0-5.5) 05/18/16 18:10 Urine Color Yellow (YELLOW) 05/18/16 17:30 Urine Appearance Clear (CLEAR) 05/18/16 17:30 Urine pH 6.5 (5.0 - 8.0) 05/18/16 17:30 Ur Specific [place] 1.020 (1.010-1.030) 05/18/16 17:30 Urine Protein 1+ mg/dL (NEGATIVE) H 05/18/16 17:30 Urine Ketones Negative mg/dL (NEGATIVE) 05/18/16 17:30 Urine Occult Blood Negative (NEGATIVE) 05/18/16 17:30 Urine Nitrite Negative (NEGATIVE) 05/18/16 17:30 Urine Bilirubin 1+ (NEGATIVE) H 05/18/16 17:30 Urine Urobilinogen 1.0 Eu (0.2-1.0) 05/18/16 17:30 Ur Leukocyte Esterase Negative (NEGATIVE) 05/18/16 17:30 Urine RBC 0-2 (0-2 HPF) 05/18/16 17:30 Urine WBC 0-2 (0-5 HPF) 05/18/16 17:30 Amorphous Sediment Few (NEGATIVE) H 05/18/16 17:30 Urine Glucose Negative mg/dL (NEGATIVE) 05/18/16 17:30 Assessment/Plan - Assessment/Plan (1) CHF (congestive heart failure) Status: Acute Current Visit: No Qualifiers: Congestive heart failure type: systolic Congestive heart failure chronicity : acute Qualified Code(s): I50.21 - Acute systolic (congestive) heart failure Assessment: appeared to be improved at this time. We'll continue with IV Lasix therapy. We will continue to monitor patient's weight. I will discontinue suárez cath. (2) Anticoagulant long-term use Status: Acute Current Visit: No Assessment: INR subtherapuedic, will increase coumadin dose. (3) Gait disturbance Status: Acute Current Visit: No Assessment: will try to sit patient up in chair. (4) Osteoarthritis, generalized Status: Acute Current Visit: Yes Assessment: patient was encouraged to take tramadol as ordered on a when necessary basis. (5) Atrial fibrillation Status: Acute Current Visit: Yes Assessment: Currently seem to be stable at this time. We'll continue to monitor.
[2016-05-20] MEDS: POTASSIUM CHLORIDE 10 MEQ TABLET.ER PO SCH (17:44)
[2016-05-20] MEDS: METOPROLOL TARTRATE 50 MG TABLET PO SCH (17:47)
[2016-05-20] MEDS: WARFARIN SODIUM 2.5 MG TABLET PO SCH (17:47)
[2016-05-20] MEDS: ACETAMINOPHEN 500 MG TABLET PO PRN (21:04)
[2016-05-20] MEDS: traMADol HCL 50 MG TABLET PO PRN (21:04)
[2016-05-21] MEDS ORDERED: SALINE FLUSH 10 ML DISP.SYRIN IVF ONE (03:40)
[2016-05-21] MEDS ORDERED: POTASSIUM CHLORIDE 10 MEQ TABLET.ER PO ONE (03:40)
[2016-05-21 07:21] LABS: eGFR (African) > 60; eGFR (Non-African) > 60
[2016-05-21] MEDS: METOPROLOL TARTRATE 50 MG TABLET PO SCH (09:27)
[2016-05-21] MEDS: BUSPIRONE HCL 5 MG TABLET PO SCH ×3 (09:27→17:56)
[2016-05-21] MEDS: MONTELUKAST SODIUM 10 MG TABLET PO SCH (09:28)
[2016-05-21] MEDS: POTASSIUM CHLORIDE 10 MEQ TABLET.ER PO SCH (11:15)
[2016-05-21] MEDS: SALINE FLUSH 10 ML DISP.SYRIN IV SCH (11:16)
--- NOTE | 2016-05-21 11:27 | Diagnostic Imaging Report ---
[facility] [address] [facility] [address] [address] Report Submission Date: May 21, 2016 8:16:46 AM WARP HAULER Patient Study Name: LIN MCCONNELL Date: May 21, 2016 7:53:08 AM WARP HAULER Modality Type: CR Gender: M Description: CHEST : 34 Institution: [facility] Physician: RUTH CEBALLOS Chest AP portable The exam: May 21, 2016. Clinical history: Chf. Findings: Comparison with May 18, 2016 demonstrates increased bilateral pleural effusions. Bibasilar atelectasis is again evident. The cardiac and mediastinal silhouettes are stable. Pulmonary vascular congestion is again evident with fullness of the right hilum unchanged. The trachea is midline. Aortic arch atherosclerotic calcifications are noted. There are degenerative disease of the bilateral shoulders. Impression: Increased bilateral pleural effusions. Electronically signed on May 21, 2016 8:16:46 AM WARP HAULER by: Carlos ARAYA
--- NOTE | 2016-05-21 13:54 | Diagnostic Imaging Report ---
[facility] [address] [facility].[address] [address] Report Submission Date: May 21, 2016 12:58:16 PM FERRY PILOT Patient Study Name: LIN MCCONNELL Date: May 21, 2016 11:55:31 AM FERRY PILOT Modality Type: CT\SR Gender: M Description: CT CHEST W/ CONTRAST : 34 Institution: [facility] Physician [place]/MED SURG Computed tomography of the chest with contrast HISTORY: Right hilar enlargement on chest radiograph FINDINGS: Transverse chest sections are obtained after 91 mL intravenous Omnipaque 350 revealing large bilateral layering pleural effusions, marked left lower lobe and moderate right lower lobe collapse, and mild atelectasis in the remainder of each lung. Pulmonary edema cannot be excluded. Diffuse cardiac enlargement and coronary artery calcifications are observed. There is no evidence of mediastinal or hilar mass/lymphadenopathy. [place] mediastinal lymph nodes are nonspecific. Mild bilateral gynecomastia is present. Multilevel cervical and thoracolumbar spondylosis is observed. IMPRESSION: Probable congestive heart failure with large bilateral pleural effusions and marked bilateral lower lobe collapse. No evidence of hilar mass or lymphadenopathy. Multilevel spondylosis. Electronically signed on May 21, 2016 12:58:16 PM FERRY PILOT by: Mahad ARAYA
[2016-05-21] MEDS ORDERED: POTASSIUM CHLORIDE 20 MEQ TABLET.ER ONE (19:38)
[2016-05-21] MEDS: SALINE FLUSH 10 ML DISP.SYRIN IVF SCH (20:22)
[2016-05-22] MEDS ORDERED: Lidocaine 1% 5ml(IM or SUTURE)(PAIN CLINIC) ONE (07:07)
--- NOTE | 2016-05-22 09:43 | Inpatient Progress Note ---
Subjective - Required Recertification Statement I anticipate X number of days because-include discharge plan: 2 days - Review of Systems Events since last encounter: Patient did have an episode of some tachycardia into the 120s last noc. Upon review of strip appeared to be irregular, possible atrial fib. Patient seems to be doing better today. Continues to complain of some SOB. Not getting up very well. Patient states that his breathing is donig some better. No chest pain or pressure noted. Patient seems to be urinating well HEENT: Denies: Head Aches Pulmonary: Dyspnea, Cough. Denies: Pleuritic Chest Pain Cardiovascular: Orthopnea (mild), Edema. Denies: Chest Pain, Palpitations Gastrointestinal: Denies: Nausea, Vomiting, Abdominal Pain Genitourinary: Denies: Dysuria, Incontinence Objective - Exam Vitals and I&O: Vital Signs Temp 99.4 F 05/22/16 08:46 Pulse 102 H 05/22/16 08:46 Resp 18 05/22/16 08:46 BP 128/85 05/22/16 08:46 Pulse Ox 94 05/22/16 08:46 Intake & Output 05/21/16 05/21/16 05/22/16 11:59 23:59 11:59 Intake Total 1560 0 Output Total 0 400 200 Balance 0 1160 -200 Weight 72.75 kg Intake: IV 0 0 Right Forearm 0 0 Oral 1560 0 Output: Urine 0 400 200 Other: Voiding Method Indwelling Catheter Indwelling Catheter # Voids 3 1 General: Alert, Oriented to Person, Oriented to Place, Oriented to Time, Cooperative, Mild distress Neck: Supple Lungs: Speaks full Sentences, Respiratory Distress (mild), Rales (rales in base) . No: Rhonchi, Stridor Cardiovascular: Regular rate (occasional PAC), Normal S1, Normal S2, No murmurs Abdomen: Normal bowel sounds, Soft, No tenderness, No masses. No: Distended Extremities: No clubbing, No cyanosis, Other (continues to have 3 plus edema) Skin: Normal, [place], Warm, Dry Neurological: Normal speech, Strength Equal Bilat, Normal tone Psych/Mental Status: Mental status NL, Mood NL, Appropriate Affect, Intact Judgment - Results Results: Laboratory Results WBC 12.80 K/ul (4.00-12.00) H 05/18/16 18:10 RBC 4.44 M/ul (3.90-5.20) 05/18/16 18:10 Hgb 13.2 g/dL (12.0-18.0) 05/18/16 18:10 Hct 41.5 % (37.0-53.0) 05/18/16 18:10 MCV 93.5 fl (80.0-100.0) 05/18/16 18:10 MCH 29.7 pg (28.0-34.0) 05/18/16 18:10 MCHC 31.8 g/dL (30.0-36.0) 05/18/16 18:10 RDW 13.7 % (11.3-14.3) 05/18/16 18:10 Plt Count 178 K/mm3 (130-400) 05/18/16 18:10 Neut % (Auto) 85.9 % (39.0-79.0) H 05/18/16 18:10 Lymph % (Auto) 7.4 % (16.0-50.0) L 05/18/16 18:10 [place] % (Auto) 4.8 % (0.0-11.0) 05/18/16 18:10 Eos % (Auto) 1.0 % (0.0-6.8) 05/18/16 18:10 Baso % (Auto) 0.1 (0.0-1.5) 05/18/16 18:10 Neut # 11.0 # k/uL (1.4-7.7) H 05/18/16 18:10 Lymph # 1.0 # k/uL (0.6-4.0) 05/18/16 18:10 [place] # 0.6 # k/uL (0.0-0.9) 05/18/16 18:10 Eos # 0.1 # k/uL (0.0-0.6) 05/18/16 18:10 Baso # 0.0 # k/uL (0.0-0.5) 05/18/16 18:10 Reactive Lymphs % 0.9 % (0.0-5.0) 05/18/16 18:10 Reactive Lymphs # 0.1 # k/uL (0.0-0.8) 05/18/16 18:10 PT 18.1 Seconds (9.7-11.5) H 05/21/16 06:20 INR 1.7 (0.9-1.1) H 05/21/16 06:20 Sodium 134 mmol/L (136-145) L 05/21/16 06:20 Potassium 3.7 mmol/L (3.5-5.0) 05/21/16 06:20 Chloride 98 mmol/L (98-110) 05/21/16 06:20 Carbon Dioxide 30 mmol/L (20-32) 05/21/16 06:20 BUN 10 mg/dL (10-26) 05/21/16 06:20 Creatinine 0.5 mg/dL (0.4-1.5) 05/21/16 06:20 Estimated Creat Clear 117 05/21/16 06:20 Est GFR ( Amer) > 60 (60-) 05/21/16 06:20 Est GFR (Non-Af Amer) > 60 (60-) 05/21/16 06:20 Glucose 113 mg/dL (70-99) H 05/21/16 06:20 Calcium 8.6 mg/dL (8.5-10.5) 05/21/16 06:20 Total Bilirubin 0.7 mg/dL (0.2-1.2) 05/18/16 18:10 AST 30 U/L (0-41) 05/18/16 18:10 ALT 32 U/L (0-45) 05/18/16 18:10 Alkaline Phosphatase 86 U/L (46-116) 05/18/16 18:10 Troponin I < 0.03 ng/mL (0.03-0.06) L 05/19/16 09:00 NT-Pro-B Natriuret Pep 9783.1 pg/mL (15.0-450.0) H 05/18/16 18:10 Total Protein 6.5 g/dL (6.0-8.5) 05/18/16 18:10 Albumin 3.8 g/dL (3.0-5.5) 05/18/16 18:10 Urine Color Yellow (YELLOW) 05/18/16 17:30 Urine Appearance Clear (CLEAR) 05/18/16 17:30 Urine pH 6.5 (5.0 - 8.0) 05/18/16 17:30 Ur Specific [place] 1.020 (1.010-1.030) 05/18/16 17:30 Urine Protein 1+ mg/dL (NEGATIVE) H 05/18/16 17:30 Urine Ketones Negative mg/dL (NEGATIVE) 05/18/16 17:30 Urine Occult Blood Negative (NEGATIVE) 05/18/16 17:30 Urine Nitrite Negative (NEGATIVE) 05/18/16 17:30 Urine Bilirubin 1+ (NEGATIVE) H 05/18/16 17:30 Urine Urobilinogen 1.0 Eu (0.2-1.0) 05/18/16 17:30 Ur Leukocyte Esterase Negative (NEGATIVE) 05/18/16 17:30 Urine RBC 0-2 (0-2 HPF) 05/18/16 17:30 Urine WBC 0-2 (0-5 HPF) 05/18/16 17:30 Amorphous Sediment Few (NEGATIVE) H 05/18/16 17:30 Urine Glucose Negative mg/dL (NEGATIVE) 05/18/16 17:30 Assessment/Plan - Assessment/Plan (1) CHF (congestive heart failure) Status: Acute Current Visit: No Qualifiers: Congestive heart failure type: systolic Congestive heart failure chronicity : acute Qualified Code(s): I50.21 - Acute systolic (congestive) heart failure Assessment: Patient has lost 3kg since admission. Had episode of tachycardia last noc, believed to be a tachy rhythm, I do not think that he is getting dehydrated. I have slowed IV lasix some. (2) Anticoagulant long-term use Status: Acute Current Visit: No Assessment: INR improved to 1.7 (3) Gait disturbance Status: Acute Current Visit: No Assessment: still poor ability to ambulate due to arthritis (4) Osteoarthritis, generalized Status: Acute Current Visit: Yes Assessment: stable, but still debilitating (5) Atrial fibrillation Status: Acute Current Visit: Yes Qualifiers: Atrial fibrillation type: paroxysmal Qualified Code(s): I48.0 - Paroxysmal atrial fibrillation Assessment: appears to be in NSR at this time.
[2016-05-22] MEDS: METOPROLOL TARTRATE 50 MG TABLET PO SCH (10:12)
[2016-05-22] MEDS: POTASSIUM CHLORIDE 20 MEQ TABLET.ER PO SCH (10:12)
[2016-05-22] MEDS: BUSPIRONE HCL 5 MG TABLET PO SCH ×3 (10:12→17:58)
[2016-05-22] MEDS: MONTELUKAST SODIUM 10 MG TABLET PO SCH (10:12)
[2016-05-22] MEDS: SALINE FLUSH 10 ML DISP.SYRIN IVF SCH ×2 (10:13→20:27)
--- NOTE | 2016-05-22 10:50 | Diagnostic Imaging Report ---
[facility] [address] [facility] [address] Report Submission Date: May 22, 2016 10:24:01 AM ONLINE BANKING SPECIALIST Patient Study Name: LIN MCCONNELL Date: May 22, 2016 10:07:35 AM ONLINE BANKING SPECIALIST Modality Type: CR Gender: M Description: CHEST : 34 Institution: [facility] Physician LIN MIRANDA - OP Chest -one view CLINICAL HISTORY: Postop the left thoracentesis. Rule out pneumothorax. FINDINGS: Examination of the chest in single portable AP view 05/22/2016 1007 hr with comparison to examination from previous day demonstrates persistent right effusion and right basilar atelectasis. There is decreased left effusion with residual. There is no evident pneumothorax. Cardiovascular and mediastinal silhouettes are stable. IMPRESSION: Decreased left effusion with residual. No pneumothorax. Otherwise no significant change. Electronically signed on May 22, 2016 10:24:01 AM ONLINE BANKING SPECIALIST by: Justo ARAYA
--- NOTE | 2016-05-22 11:53 | Inpatient Progress Note ---
Subjective - Required Recertification Statement I anticipate X number of days because-include discharge plan: 2 days - Review of Systems Events since last encounter: Patient had an x-ray yesterday which showed increasing pleural effusions and right hilar fullness. Pulmonary congestion appeared improved some. Patient continues to have some pedal edema. Patient complains of feeling weak. Has not been getting out of bed despite being encouraged to do so. No chest pain or pressure. Denies any cough at this time. Patient did have some mental confusion last noc but it seems to have cleared. Cardiovascular: Orthopnea. Denies: Chest Pain, Palpitations Gastrointestinal: Denies: Nausea, Vomiting, Abdominal Pain, Diarrhea, Constipation Genitourinary: Denies: Dysuria Objective - Exam Vitals and I&O: Vital Signs Temp 99.4 F 05/22/16 08:46 Pulse 102 H 05/22/16 08:46 Resp 18 05/22/16 08:46 BP 128/85 05/22/16 08:46 Pulse Ox 94 05/22/16 08:46 Intake & Output 05/21/16 05/21/16 05/22/16 11:59 23:59 11:59 Intake Total 1560 0 Output Total 0 400 200 Balance 0 1160 -200 Weight 72.75 kg Intake: IV 0 0 Right Forearm 0 0 Oral 1560 0 Output: Urine 0 400 200 Other: Voiding Method Indwelling Catheter Indwelling Catheter # Voids 3 1 General: Alert, Oriented to Person, Oriented to Place, Oriented to Time Neck: Supple Lungs: Normal air movement, Speaks full Sentences, Respiratory Distress (mild). No: Clear to auscultation (dullness in the bases bilaterally) Cardiovascular: Regular rate, Normal S1, Normal S2, No murmurs. No: Rubs Abdomen: Normal bowel sounds, Soft, No tenderness Extremities: Other (edema is stable but not improved) Skin: Normal, [place], Warm, Dry Psych/Mental Status: Mental status NL, Mood NL, Appropriate Affect, Intact Judgment - Results Results: Laboratory Results WBC 12.80 K/ul (4.00-12.00) H 05/18/16 18:10 RBC 4.44 M/ul (3.90-5.20) 05/18/16 18:10 Hgb 13.2 g/dL (12.0-18.0) 05/18/16 18:10 Hct 41.5 % (37.0-53.0) 05/18/16 18:10 MCV 93.5 fl (80.0-100.0) 05/18/16 18:10 MCH 29.7 pg (28.0-34.0) 05/18/16 18:10 MCHC 31.8 g/dL (30.0-36.0) 05/18/16 18:10 RDW 13.7 % (11.3-14.3) 05/18/16 18:10 Plt Count 178 K/mm3 (130-400) 05/18/16 18:10 Neut % (Auto) 85.9 % (39.0-79.0) H 05/18/16 18:10 Lymph % (Auto) 7.4 % (16.0-50.0) L 05/18/16 18:10 [place] % (Auto) 4.8 % (0.0-11.0) 05/18/16 18:10 Eos % (Auto) 1.0 % (0.0-6.8) 05/18/16 18:10 Baso % (Auto) 0.1 (0.0-1.5) 05/18/16 18:10 Neut # 11.0 # k/uL (1.4-7.7) H 05/18/16 18:10 Lymph # 1.0 # k/uL (0.6-4.0) 05/18/16 18:10 [place] # 0.6 # k/uL (0.0-0.9) 05/18/16 18:10 Eos # 0.1 # k/uL (0.0-0.6) 05/18/16 18:10 Baso # 0.0 # k/uL (0.0-0.5) 05/18/16 18:10 Reactive Lymphs % 0.9 % (0.0-5.0) 05/18/16 18:10 Reactive Lymphs # 0.1 # k/uL (0.0-0.8) 05/18/16 18:10 PT 23.3 Seconds (9.7-11.5) H 05/22/16 10:00 INR 2.2 (0.9-1.1) H 05/22/16 10:00 Sodium 134 mmol/L (136-145) L 05/21/16 06:20 Potassium 3.7 mmol/L (3.5-5.0) 05/21/16 06:20 Chloride 98 mmol/L (98-110) 05/21/16 06:20 Carbon Dioxide 30 mmol/L (20-32) 05/21/16 06:20 BUN 10 mg/dL (10-26) 05/21/16 06:20 Creatinine 0.5 mg/dL (0.4-1.5) 05/21/16 06:20 Estimated Creat Clear 117 05/21/16 06:20 Est GFR ( Amer) > 60 (60-) 05/21/16 06:20 Est GFR (Non-Af Amer) > 60 (60-) 05/21/16 06:20 Glucose 113 mg/dL (70-99) H 05/21/16 06:20 Calcium 8.6 mg/dL (8.5-10.5) 05/21/16 06:20 Total Bilirubin 0.7 mg/dL (0.2-1.2) 05/18/16 18:10 AST 30 U/L (0-41) 05/18/16 18:10 ALT 32 U/L (0-45) 05/18/16 18:10 Alkaline Phosphatase 86 U/L (46-116) 05/18/16 18:10 Troponin I < 0.03 ng/mL (0.03-0.06) L 05/19/16 09:00 NT-Pro-B Natriuret Pep 26486.4 pg/mL (15.0-450.0) H 05/22/16 10:00 Total Protein 6.5 g/dL (6.0-8.5) 05/18/16 18:10 Albumin 3.8 g/dL (3.0-5.5) 05/18/16 18:10 Urine Color Yellow (YELLOW) 05/18/16 17:30 Urine Appearance Clear (CLEAR) 05/18/16 17:30 Urine pH 6.5 (5.0 - 8.0) 05/18/16 17:30 Ur Specific [place] 1.020 (1.010-1.030) 05/18/16 17:30 Urine Protein 1+ mg/dL (NEGATIVE) H 05/18/16 17:30 Urine Ketones Negative mg/dL (NEGATIVE) 05/18/16 17:30 Urine Occult Blood Negative (NEGATIVE) 05/18/16 17:30 Urine Nitrite Negative (NEGATIVE) 05/18/16 17:30 Urine Bilirubin 1+ (NEGATIVE) H 05/18/16 17:30 Urine Urobilinogen 1.0 Eu (0.2-1.0) 05/18/16 17:30 Ur Leukocyte Esterase Negative (NEGATIVE) 05/18/16 17:30 Urine RBC 0-2 (0-2 HPF) 05/18/16 17:30 Urine WBC 0-2 (0-5 HPF) 05/18/16 17:30 Amorphous Sediment Few (NEGATIVE) H 05/18/16 17:30 Urine Glucose Negative mg/dL (NEGATIVE) 05/18/16 17:30 Assessment/Plan - Assessment/Plan (1) CHF (congestive heart failure) Status: Acute Current Visit: No Qualifiers: Congestive heart failure type: systolic Congestive heart failure chronicity : acute Qualified Code(s): I50.21 - Acute systolic (congestive) heart failure Assessment: Patient is not improving as I would hope. Has large pleural effusions bilat by chest CT. No mass noted. Will get cardiology consult and ECHO today. Initial troponin was negative. Patient has not had any chest pain or pressure. (2) Anticoagulant long-term use Status: Acute Current Visit: No Assessment: INR 2.2 today. History of DVT with PE (3) Gait disturbance Status: Acute Current Visit: No Assessment: Will await cardiology consult then get PT and OT consult (4) Atrial fibrillation Status: Acute Current Visit: Yes Qualifiers: Atrial fibrillation type: paroxysmal Qualified Code(s): I48.0 - Paroxysmal atrial fibrillation Assessment: Appears in NSR today (5) Pleural effusion Status: Acute Current Visit: Yes Assessment: Thoracentesis done on the left side for therapeutic/diagnostic reasons. Removed 720cc of clear yellow fluids consistent with CHF. Studies have been sent. Post chest x-ray no pneumothorax.
--- NOTE | 2016-05-22 12:17 | Inpatient Progress Note ---
Subjective - Required Recertification Statement I anticipate X number of days because-include discharge plan: 2 days - Review of Systems Events since last encounter: Patient has been found to have large bilateral pleural effusions on CAT scan. Has a history of CHF. Patient does not seem to be improving as quickly as I would expect. I felt that patient needed to have a thoracentesis done for diagnostic and therapeutic reason. Patient was informed to the indication for, risk and benefits of having a thoracentesis done and consented with consent form signed. US established a window on the left posterior chest area. Area was cleansed with betadine. Skin surface was anesthetized with 1% xylocain. A small stab incision was made with scalpel, needle/catheter was inserted over the top of a rib and advanced until pleural fluid was aspirated. Needle was removed. a total of 720 cc of serosangenous fluid was removed and sen off for studies. Post procedure x-ray showed improvement in the left lung aeration and no pneumothorax. Objective - Exam Vitals and I&O: Vital Signs Temp 99.4 F 05/22/16 08:46 Pulse 102 H 05/22/16 08:46 Resp 18 05/22/16 08:46 BP 128/85 05/22/16 08:46 Pulse Ox 94 05/22/16 08:46 Intake & Output 05/21/16 05/22/16 05/22/16 23:59 11:59 23:59 Intake Total 1560 0 Output Total 400 200 Balance 1160 -200 Intake: IV 0 0 Right Forearm 0 0 Oral 1560 0 Output: Urine 400 200 Other: Voiding Method Indwelling Catheter # Voids 3 1 - Results Results: Laboratory Results WBC 12.80 K/ul (4.00-12.00) H 05/18/16 18:10 RBC 4.44 M/ul (3.90-5.20) 05/18/16 18:10 Hgb 13.2 g/dL (12.0-18.0) 05/18/16 18:10 Hct 41.5 % (37.0-53.0) 05/18/16 18:10 MCV 93.5 fl (80.0-100.0) 05/18/16 18:10 MCH 29.7 pg (28.0-34.0) 05/18/16 18:10 MCHC 31.8 g/dL (30.0-36.0) 05/18/16 18:10 RDW 13.7 % (11.3-14.3) 05/18/16 18:10 Plt Count 178 K/mm3 (130-400) 05/18/16 18:10 Neut % (Auto) 85.9 % (39.0-79.0) H 05/18/16 18:10 Lymph % (Auto) 7.4 % (16.0-50.0) L 05/18/16 18:10 [place] % (Auto) 4.8 % (0.0-11.0) 05/18/16 18:10 Eos % (Auto) 1.0 % (0.0-6.8) 05/18/16 18:10 Baso % (Auto) 0.1 (0.0-1.5) 05/18/16 18:10 Neut # 11.0 # k/uL (1.4-7.7) H 05/18/16 18:10 Lymph # 1.0 # k/uL (0.6-4.0) 05/18/16 18:10 [place] # 0.6 # k/uL (0.0-0.9) 05/18/16 18:10 Eos # 0.1 # k/uL (0.0-0.6) 05/18/16 18:10 Baso # 0.0 # k/uL (0.0-0.5) 05/18/16 18:10 Reactive Lymphs % 0.9 % (0.0-5.0) 05/18/16 18:10 Reactive Lymphs # 0.1 # k/uL (0.0-0.8) 05/18/16 18:10 PT 23.3 Seconds (9.7-11.5) H 05/22/16 10:00 INR 2.2 (0.9-1.1) H 05/22/16 10:00 Sodium 134 mmol/L (136-145) L 05/21/16 06:20 Potassium 3.7 mmol/L (3.5-5.0) 05/21/16 06:20 Chloride 98 mmol/L (98-110) 05/21/16 06:20 Carbon Dioxide 30 mmol/L (20-32) 05/21/16 06:20 BUN 10 mg/dL (10-26) 05/21/16 06:20 Creatinine 0.5 mg/dL (0.4-1.5) 05/21/16 06:20 Estimated Creat Clear 117 05/21/16 06:20 Est GFR ( Amer) > 60 (60-) 05/21/16 06:20 Est GFR (Non-Af Amer) > 60 (60-) 05/21/16 06:20 Glucose 113 mg/dL (70-99) H 05/21/16 06:20 Calcium 8.6 mg/dL (8.5-10.5) 05/21/16 06:20 Total Bilirubin 0.7 mg/dL (0.2-1.2) 05/18/16 18:10 AST 30 U/L (0-41) 05/18/16 18:10 ALT 32 U/L (0-45) 05/18/16 18:10 Alkaline Phosphatase 86 U/L (46-116) 05/18/16 18:10 Troponin I < 0.03 ng/mL (0.03-0.06) L 05/19/16 09:00 NT-Pro-B Natriuret Pep 09728.4 pg/mL (15.0-450.0) H 05/22/16 10:00 Total Protein 6.5 g/dL (6.0-8.5) 05/18/16 18:10 Albumin 3.8 g/dL (3.0-5.5) 05/18/16 18:10 Urine Color Yellow (YELLOW) 05/18/16 17:30 Urine Appearance Clear (CLEAR) 05/18/16 17:30 Urine pH 6.5 (5.0 - 8.0) 05/18/16 17:30 Ur Specific [place] 1.020 (1.010-1.030) 05/18/16 17:30 Urine Protein 1+ mg/dL (NEGATIVE) H 05/18/16 17:30 Urine Ketones Negative mg/dL (NEGATIVE) 05/18/16 17:30 Urine Occult Blood Negative (NEGATIVE) 05/18/16 17:30 Urine Nitrite Negative (NEGATIVE) 05/18/16 17:30 Urine Bilirubin 1+ (NEGATIVE) H 05/18/16 17:30 Urine Urobilinogen 1.0 Eu (0.2-1.0) 05/18/16 17:30 Ur Leukocyte Esterase Negative (NEGATIVE) 05/18/16 17:30 Urine RBC 0-2 (0-2 HPF) 05/18/16 17:30 Urine WBC 0-2 (0-5 HPF) 05/18/16 17:30 Amorphous Sediment Few (NEGATIVE) H 05/18/16 17:30 Urine Glucose Negative mg/dL (NEGATIVE) 05/18/16 17:30 Assessment/Plan - Assessment/Plan (1) CHF (congestive heart failure) Status: Acute Current Visit: No Qualifiers: Congestive heart failure type: systolic Congestive heart failure chronicity : acute Qualified Code(s): I50.21 - Acute systolic (congestive) heart failure (2) Anticoagulant long-term use Status: Acute Current Visit: No (3) Gait disturbance Status: Acute Current Visit: No
[2016-05-22] MEDS ORDERED: FUROSEMIDE 40 MG TABLET PO ONE (13:48)
[2016-05-22 15:21] LABS: APPEARANCE CLEAR; COLOR YELLOW; GLUCOSE-FLUID 112 mg/dL; MONOS 86 % (75-100); SOURCE PLEURAL
[2016-05-22] MEDS: FUROSEMIDE 40 MG/4 ML VIAL IVP SCH (15:32)
[2016-05-22] MEDS: WARFARIN SODIUM 2.5 MG TABLET PO SCH (18:02)
[2016-05-23] MEDS: FUROSEMIDE 40 MG/4 ML VIAL IVP SCH ×2 (05:55→13:28)
[2016-05-23] MEDS: traMADol HCL 50 MG TABLET PO PRN ×2 (05:55→19:41)
[2016-05-23 06:52] LABS: eGFR (African) > 60; eGFR (Non-African) > 60
[2016-05-23] MEDS: MONTELUKAST SODIUM 10 MG TABLET PO SCH (08:12)
[2016-05-23] MEDS: POTASSIUM CHLORIDE 20 MEQ TABLET.ER PO SCH (08:12)
[2016-05-23] MEDS: BUSPIRONE HCL 5 MG TABLET PO SCH ×3 (08:12→17:47)
[2016-05-23] MEDS: METOPROLOL TARTRATE 50 MG TABLET PO SCH (08:12)
[2016-05-23] MEDS: SALINE FLUSH 10 ML DISP.SYRIN IVF SCH ×2 (08:12→19:41)
[2016-05-24] MEDS: FUROSEMIDE 40 MG/4 ML VIAL IVP SCH (06:45)
[2016-05-24 06:59] LABS: BASOPHILS % 0.1 (0.0-1.5); EOSINOPHILS % 2.7 % (0.0-6.8); LYMPHOCYTES # 1.2 # k/uL (0.6-4.0); MEAN CORPUSCULAR HEMOGLOBIN 30.1 pg (28.0-34.0); MONOCYTES # 0.4 # k/uL (0.0-0.9); MONOCYTES % 4.3 % (0.0-11.0); NEUTROPHILS # 6.1 # k/uL (1.4-7.7)
[2016-05-24 07:20] LABS: eGFR (African) > 60; eGFR (Non-African) > 60
[2016-05-24] MEDS: METOPROLOL TARTRATE 50 MG TABLET PO SCH (09:08)
[2016-05-24] MEDS: BUSPIRONE HCL 5 MG TABLET PO SCH (09:08)
[2016-05-24] MEDS: SALINE FLUSH 10 ML DISP.SYRIN IVF SCH (09:11)
[2016-05-24] MEDS: POTASSIUM CHLORIDE 20 MEQ TABLET.ER PO SCH (09:11)
[2016-05-24] MEDS: MONTELUKAST SODIUM 10 MG TABLET PO SCH (09:11)
--- NOTE | 2016-05-24 10:50 | Discharge Summary ---
Discharge Summary - Discharge Sumary History of Present Illness: 86-yo white male who has had a history of increase swelling and pedal edema over the last months. 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 Has been having some orthopnic symptoms. Patient denies any chest pain or pressure. He has not had any previous history of CHF. Patient does have his feet hanging down a lot and it was felt that the pedal edema was dependent in nature. Patient started to have some swelling to his scrotum and penis. He states that this was making it difficult for him to urinate and subsequently came to the ED for further evaluation and treatment. In the ED he was found to have some CHF and was hypoxic and admitted for further evaluation and treatment. Condition at Discharge: Stable Home Medications: Ambulatory Orders Medication Instructions Recorded Furosemide [Furosemide] 20 mg PO DAILY 04/29/16 Warfarin Sodium [Warfarin Sodium] 2 mg PO DAILY 04/29/16 Metoprolol Tartrate [Lopressor] 12.5 mg PO D #30 tablet 05/24/16 Warfarin Sodium [Coumadin] 2.5 mg PO 1800 #30 tablet 05/24/16 Consultations this Visit: Cardiology Procedures this Visit: Other (ECHO) Allergies/Adverse Reactions: Allergies Allergy/AdvReac Type Severity Reaction Status Date / Time prednisone Allergy Intermediate confusion Verified 06/10/16 22:14 Discharge Summary: Patient was started on IV Lasix. Patient did have good diuresis with improvement of his congestive heart failure. Patient did have some pleural effusion felt increased in nature. Patient subsequently underwent thoracentesis for evaluation. Fluid was consistent with a transudate. Was felt to be related to his congestive heart failure. Patient does have a history of pulmonary embolization related to DVT. Patient did not experience any increasing shortness of breath or evidence of any further DVTs or PEs. Patient was started on physical and occupational therapy for his gait disturbance. Patient does not seem to be highly motivated to help with that. - Final Diagnosis (1) CHF (congestive heart failure) Problems: ECHO show poor EF of 15-20% Patient was advised of the poor condition of his heart. Will continue with lasix therapy. He is on a low dose B prince, BP has dropped some so will not add SHERIF at this time. (2) Anticoagulant long-term use Problems: INR is subtherapuedic at the time of discharge will increase coumadin and recheck with home health. (3) Gait disturbance Problems: Patient was advised that I he would be safer in a wheelchair at home rather then a walker. Patient has not ambulated much during his stay due to refusing to do so and arthritic pain in the knees. Patient will have home health PT and OT.
[2016-05-24 13:35] VITALS: BP 120/62
== END 2016-05-24 15:45 | disposition home or self-care (01) | DRG 93 ==
LOC: ED 17:14 → SOUTH 19:37
PROVIDERS: ADMIT Family Medicine; ATTEND Family Medicine
DX: R26.9 Unspecified abnormalities of gait and mobility (principal); I50.9 Heart failure, unspecified; Z79.01 Long term (current) use of anticoagulants
CPT/HCPCS: 36415; 51702; 71010; 71260; 76604; 80048; 80053; 81002; 82945; 83615; 83880; 84157; 84484; 85025; 85610; 88112; 88305; 89051; 93306; 99284; A9270; J1940; Q9966; 99222; 99232; 99238; S1016

== ENCOUNTER 2016-06-04 19:26 | Emergency (ER) | payer OTHER ==
[2016-06-04] MEDS ORDERED: METOPROLOL TARTRATE 50 MG TABLET PO ONE (19:42)
[2016-06-04] MEDS ORDERED: 0.9 % SODIUM CHLORIDE 1,000 ML IV ONE (20:10)
[2016-06-04] MEDS ORDERED: 0.9 % SODIUM CHLORIDE 500 ML IV ONE ×2 (20:10)
[2016-06-04 20:11] LABS: BASOPHILS % 0.2 (0.0-1.5); LYMPHOCYTES # 1.6 # k/uL (0.6-4.0); MEAN CORPUSCULAR HEMOGLOBIN 29.6 pg (28.0-34.0); MONOCYTES # 0.7 # k/uL (0.0-0.9); MONOCYTES % 6.7 % (0.0-11.0); NEUTROPHILS # 8.5 # k/uL (1.4-7.7)
[2016-06-04 20:23] LABS: eGFR (African) > 60; eGFR (Non-African) > 60
[2016-06-04] MEDS ORDERED: LOPERAMIDE HCL 2 MG CAPSULE PO ONE (20:28)
--- NOTE | 2016-06-04 20:31 | ED Physician Documentation ---
General Adult - HISTORIAN Historian: patient - HPI Stated Complaint: diarrhea Chief Complaint: Nausea,Vomiting,Diarrhea Additional Information: 86 yo M here with diarrhea. States multiple times per day. Is making it to toilet, no accidents. No abdominal pain n/v. Is able to tolerate fluids. No fevers, no recent travel. No blood in stool. Not dizzy, lightheaded. All other systems reviewed and negative except per HPI. Timing: still present - ROS CONST: no problems EYES/ENT: none CVS/RESP: none GI/: diarrhea MS/SKIN/LYMPH: none NEURO/PSYCH: denies: headache - PAST HX Past History: other (CHF, PE, PNA) Allergies/Adverse Reactions: Allergies Allergy/AdvReac Type Severity Reaction Status Date / Time prednisone Allergy Intermediate confusion Verified 06/04/16 20:15 Home Medications: Ambulatory Orders Medication Instructions Recorded Furosemide [Furosemide] 20 mg PO DAILY 04/29/16 Warfarin Sodium [Warfarin Sodium] 2 mg PO DAILY 04/29/16 Metoprolol Tartrate [Lopressor] 12.5 mg PO D #30 tablet 05/24/16 Warfarin Sodium [Coumadin] 2.5 mg PO 1800 #30 tablet 05/24/16 - SOCIAL HX Smoking History: non-smoker Alcohol Use: none Drug Use: none - FAMILY HX Family History: No - VITAL SIGNS Vital Signs: Vital Signs Temp Pulse Resp BP Pulse Ox 97.9 F 84 19 130/78 98 06/04/16 20:16 06/04/16 20:16 06/04/16 20:16 06/04/16 20:16 06/04/16 20:16 - REVIEWED ASSESSMENTS Nursing Assessment Reviewed: Yes Vitals Reviewed: Yes ED Results Lab/Radiology - Lab Results Lab Results: Lab Results 06/04/16 06/04/16 20:00 20:00 WBC 11.10 K/ul K/ul (4.00-12.00) RBC 3.94 M/ul M/ul (3.90-5.20) Hgb 11.7 g/dL L g/dL (12.0-18.0) Hct 35.9 % L % (37.0-53.0) MCV 91.1 fl fl (80.0-100.0) MCH 29.6 pg pg (28.0-34.0) MCHC 32.5 g/dL g/dL (30.0-36.0) RDW 14.2 % % (11.3-14.3) Plt Count 390 K/mm3 K/mm3 (130-400) Neut % (Auto) 76.6 % % (39.0-79.0) Lymph % (Auto) 14.7 % L % (16.0-50.0) [place] % (Auto) 6.7 % % (0.0-11.0) Eos % (Auto) 1.0 % % (0.0-6.8) Baso % (Auto) 0.2 (0.0-1.5) Neut # 8.5 # k/uL H # k/uL (1.4-7.7) Lymph # 1.6 # k/uL # k/uL (0.6-4.0) [place] # 0.7 # k/uL # k/uL (0.0-0.9) Eos # 0.1 # k/uL # k/uL (0.0-0.6) Baso # 0.0 # k/uL # k/uL (0.0-0.5) Reactive Lymphs % 0.8 % % (0.0-5.0) Reactive Lymphs # 0.1 # k/uL # k/uL (0.0-0.8) Sodium 132 mmol/L L mmol/L (136-145) Potassium 4.7 mmol/L mmol/L (3.5-5.0) Chloride 97 mmol/L L mmol/L (98-110) Carbon Dioxide 31 mmol/L mmol/L (20-32) BUN 15 mg/dL mg/dL (10-26) Creatinine 0.6 mg/dL mg/dL (0.4-1.5) Estimated Creat Clear 88 Est GFR ( Amer) > 60 (60 - ) Est GFR (Non-Af Amer) > 60 (60 - ) Glucose 98 mg/dL mg/dL (70-99) Calcium 8.5 mg/dL mg/dL (8.5-10.5) Total Bilirubin 0.3 mg/dL mg/dL (0.2-1.2) AST 21 U/L U/L (0-41) ALT 22 U/L U/L (0-45) Alkaline Phosphatase 75 U/L U/L (46-116) Total Protein 5.5 g/dL L g/dL (6.0-8.5) Albumin 3.3 g/dL g/dL (3.0-5.5) - Orders Orders: ED Orders Category Date Time Status CBC/PLATELET/DIFF Stat Lab 06/04/16 20:00 Completed CMP [CMP] Routine Lab 06/04/16 20:00 Completed 0.9 % Sodium Chloride [Normal Saline] 1,000 ml Med 06/04/16 20:10 Discontinued IV Q1H 0.9 % Sodium Chloride [Normal Saline] 500 ml Med 06/04/16 20:10 Discontinued IV .STK-MED 0.9 % Sodium Chloride [Normal Saline] 500 ml Med 06/04/16 20:10 Active IV Q1H Loperamide HCl [Immodium] Med 06/04/16 20:28 Discontinued 2 mg PO NOW ONE Metoprolol Tartrate [Lopressor] Med 06/04/16 19:42 Discontinued 100 mg PO NOW ONE General Adult Physical Exam - PHYSICAL EXAM GENERAL APPEARANCE: no distress EENT: ENT inspection normal, pharynx normal, no signs of dehydration. No: pharyngeal erythema NECK: normal inspection, supple. No: lymphadenopathy RESPIRATORY: no resp distress, chest non-tender, breath sounds normal CVS: reg rate & rhythm, heart sounds normal, equal pulses, no murmur ABDOMEN: soft, no organomegaly, normal bowel sounds, no distension, non-tender SKIN: warm/dry, normal color EXTREMITIES: non-tender NEURO: oriented X3 Discharge Clincal Impression: Diarrhea Qualifiers: Diarrhea type: unspecified type Qualified Code(s): R19.7 - Diarrhea, unspecified Additional Instructions: 500cc IVF today. Advised increased fluids and use Imodium OTC. Given first dose in ER today. Home Medications: Ambulatory Orders Furosemide [Furosemide] 20 mg PO DAILY 04/29/16 Warfarin Sodium [Warfarin Sodium] 2 mg PO DAILY 04/29/16 Metoprolol Tartrate [Lopressor] 12.5 mg PO D #30 tablet 05/24/16 Warfarin Sodium [Coumadin] 2.5 mg PO 1800 #30 tablet 05/24/16 Condition: Good Disposition: 01 HOME, SELF-CARE Decision to Admit: NO Decision Time: 20:33
[2016-06-04 21:37] VITALS: BP 143/87
== END 2016-06-04 21:00 | disposition home or self-care (01) ==
LOC: ED 19:26
DX: R19.7 Diarrhea, unspecified (principal)
CPT/HCPCS: 80053; 85025; J7030; J7060; 96360; 99283; S1016

== ENCOUNTER 2016-06-10 21:44 | Emergency (ER) | payer OTHER ==
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
[2016-06-10 23:24] LABS: BASOPHILS % 0.2 (0.0-1.5); EOSINOPHILS % 0.3 % (0.0-6.8); MEAN CORPUSCULAR HEMOGLOBIN 28.2 pg (28.0-34.0); MONOCYTES # 0.7 # k/uL (0.0-0.9); MONOCYTES % 4.8 % (0.0-11.0); NEUTROPHILS # 13.3 # k/uL (1.4-7.7)
[2016-06-10 23:37] LABS: eGFR (African) > 60; eGFR (Non-African) > 60
[2016-06-11] MEDS ORDERED: FUROSEMIDE 40 MG/4 ML VIAL IVP ONE (00:04)
[2016-06-11] MEDS ORDERED: cefTRIAXone SODIUM 1 GM in 0.9 % SODIUM CHLORIDE 50 ML IV STA (00:28)
[2016-06-11] MEDS ORDERED: LIDOCAINE Urojet 5 ML JEL MM ONE (00:28)
[2016-06-11 01:42] VITALS: BP 125/69
--- NOTE | 2016-06-11 06:05 | Diagnostic Imaging Report ---
Report Submission Date: Jun 10, 2016 10:42:27 PM FERMENTING CELLARS SUPERVISOR Patient ~ Study Name: LIN MCCONNELL ~ Date: Jun 10, 2016 10:11:46 PM FERMENTING CELLARS SUPERVISOR ~ Modality Type: CR Gender: M ~ Description: SHOULDER : 34 ~ Institution: [facility] Physician: JASWANT LAIRD ~ ~ ~ ~ Left shoulder, 3 views History: Shoulder pain Findings: No fracture or dislocation is identified. Advanced degenerative changes are noted at the glenohumeral joint. Impression: 1. Advanced osteoarthritis. 2. No acute abnormality. ~ Electronically signed on Jun 10, 2016 10:42:27 PM FERMENTING CELLARS SUPERVISOR by: Alex ARAYA
--- NOTE | 2016-06-11 06:05 | Diagnostic Imaging Report ---
Report Submission Date: Jun 10, 2016 10:44:10 PM BOTTOMER OPERATOR Patient ~ Study Name: LIN MCCONNELL ~ Date: Jun 10, 2016 10:29:00 PM BOTTOMER OPERATOR ~ Modality Type: CR Gender: M ~ Description: CHEST : 32 ~ Institution: [facility] Physician: JASWANT LAIRD ~ ~ ~ ~ Chest, AP portable History: Cough Findings: There is no pneumothorax. Small effusions are suspected. The heart is enlarged. Pulmonary vascular congestion is present. Atelectasis are infiltrates are noted in both lower lobes. There is calcification in the thoracic aorta. Since 22 May 2016, lungs have improved. Impression: 1. Cardiomegaly and pulmonary vascular congestion. 2. Aortic atherosclerosis. 3. Bilateral pleural effusions and atelectasis. ~ Electronically signed on Jun 10, 2016 10:44:10 PM BOTTOMER OPERATOR by: Alex ARAYA
[2016-06-11 07:07] LABS: APPEARANCE,URINE CLOUDY (CLEAR); COLOR,URINE YELLOW (YELLOW); OCCULT BLOOD,URINE 3+ (NEGATIVE); UROBILINOGEN URINE 0.2 Eu (0.2-1.0)
== END 2016-06-11 01:30 | disposition short-term general hospital (02) ==
LOC: ED 21:44
DX: J18.9 Pneumonia, unspecified organism (principal); L89.303 Pressure ulcer of unspecified buttock, stage 3; I50.9 Heart failure, unspecified; D72.829 Elevated white blood cell count, unspecified; W19.XXXA Unspecified fall, initial encounter; Y93.9 Activity, unspecified; Y99.9 Unspecified external cause status
CPT/HCPCS: 51702; 71010; 73030; 80053; 81002; 83880; 85025; 87040; 87086; 87186; J0696; 96365; 99283; 99284; S1016

== ENCOUNTER 2016-11-22 10:16 | Outpatient (CLI) | payer OTHER | END 2016-11-22 10:17 | LOC: OUT 10:16 | PROVIDERS: ATTEND Colon & Rectal Surgery | DX: N64.4 Mastodynia (principal); N62 Hypertrophy of breast | CPT/HCPCS: G0463 ==

== ENCOUNTER 2017-05-15 11:28 | Emergency (ER) | payer OTHER ==
[2017-05-15 11:45] VITALS: BP 134/66
--- NOTE | 2017-05-15 12:41 | ED Physician Documentation ---
General Adult - HISTORIAN Historian: patient, other (DPOA) - HPI Stated Complaint: L Shoulder/R knee pain Chief Complaint: General Adult Further Comments: yes (87 year old male patient brought in by neice and nephew who are DPOA for evaluation after a fall this morning. Family is very concerned about patient's living conditions. Patient was cared for by his brother who is at [facility] and going to [facility] tomorrow for Hospice. Patient cannot perform ADLs. Family reports house is in condemable state. 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) Other History: other (BPH, HLD, depression, GERD, CHF, OA, ) Allergies/Adverse Reactions: Allergies Allergy/AdvReac Type Severity Reaction Status Date / Time prednisone Allergy Intermediate confusion Verified 05/15/17 11:39 Home Medications: Ambulatory Orders Medication Instructions Recorded Furosemide [Furosemide] 20 mg PO DAILY 04/29/16 Acetaminophen [Tylenol] 2 tab PO TID 05/15/17 Atorvastatin Calcium [Atorvastatin 10 mg PO DAILY 05/15/17 Calcium] Citalopram Hydrobromide 20 mg PO DAILY 05/15/17 [Citalopram HBr] Esomeprazole Magnesium [Nexium] 40 mg PO DAILY 05/15/17 Fluticasone Propionate [Flovent 50 mcg INH DAILY 05/15/17 Diskus] Loratadine [Alavert] 10 mg PO PRN PRN 05/15/17 Tamsulosin HCl [Flomax] 0.4 mg PO HS 05/15/17 Triamcinolone Acetonide 0.1% 80 gm TOP PRN PRN 05/15/17 [Kenalog 0.1% cream] Warfarin Sodium [Coumadin] 5 mg PO DAILY 05/15/17 - SOCIAL HX Smoking History: non-smoker - FAMILY HX Family History: No - VITAL SIGNS Vital Signs: Vital Signs Temp Pulse Resp BP Pulse Ox 97.7 F 108 H 19 134/66 98 05/15/17 11:30 05/15/17 11:30 05/15/17 11:30 05/15/17 11:30 05/15/17 11:30 - REVIEWED ASSESSMENTS Nursing Assessment Reviewed: Yes Vitals Reviewed: Yes Progress - Progress Progress: Long discussion with patient. States he fell this morning trying to get into his wheelchair. Pulled himself back up into the wheelchair after some time. Questioned patient on medications - "I lost them. I found a bag the other day. Haven't taken them in about 2 weeks." Discussed meal preparation - patient states he cannot cook for himself. [address] of left extremities per radiology recommendation. [address] Ellis, case discussed. Patient does not qualify for acute admission. 1426 Dr Ellis talked with patient. Placement at [facility] pending. Patient discharged with niece and nephew to [facility]. ED Results Lab/Radiology - Radiology Radiology Impressions: Examination: CT left upper extremity. History: FALL; LEFT SHOULDER PAIN; CT RECOMMENDED PER RADIOLOGIST (Hx) / PAIN AFTER FALL, FOLLOW UP XRAY (DICOM Hx) Comparison exams: Plain film dated 15 May 2017 Technique: Axial imaging with sagittal and coronal reconstruction. Findings: Extensive humeral head ossific spurring. Cortical margins appear to be intact without overt disruption. Margins of the osseous glenoid are also intact. Degenerative changes involving the acromioclavicular joint with inferior osteophytic spurring. No cortical disruption. Large fluid collection between the humeral head and the acromion. Remaining visualized soft tissue structures are without gross abnormality. Posterior lung atelectatic changes. Impression: Extensive humeral head degenerative changes however no evidence for displaced fracture. Degenerative changes of the acromioclavicular joint and osseous glenoid. Large joint effusion with likely rotator cuff injury. Electronically signed on May 15, 2017 2:25:09 PM MEDICAL BILLING INSTRUCTOR by: Destin Villela Examination: Plain film right knee History: PAIN; FALL (Hx) / PAIN AFTER FALL (DICOM Hx) / PAIN AFTER FALL Findings: 4 views of the right knee demonstrates osteopenia. Tibial spine, patellar, and medial/lateral ossific spurring. Joint space narrowing. Chondrocalcinosis. No evidence for cortical disruption or dislocation. Minimal degenerative lateral displacement of the patella. Posterior vascular calcifications. No joint effusion. Impression: Osteopenia and advanced degenerative changes. Chondrocalcinosis. No evidence for displaced fracture. Wall of Electronically signed on May 15, 2017 12:55:23 PM MEDICAL BILLING INSTRUCTOR by: Destin Villela Examination: Plain film left shoulder History: FALL; PAIN (Hx) / FALL; PAIN (DICOM Hx) / FALL; PAIN Comparison exams: None provided Findings: 3 views of the left shoulder demonstrates osteopenia. Articular degenerative changes with subchondral cyst formation. Faint lucency involving the region of the humeral neck. Osseous glenoid is without gross abnormality. No gross soft tissue abnormalities. Impression: Faint lucency involving the humeral neck - suggestive for a nondisplaced fracture line. Consider CT shoulder/extremity to better evaluate. Articular degenerative changes. Electronically signed on May 15, 2017 12:59:59 PM MEDICAL BILLING INSTRUCTOR by: Destin Villela - Orders Orders: ED Orders Category Date Time Status KNEE 3 VIEWS [RAD] Stat Exams 05/15/17 Ordered SHOULDER 2 VIEWS OR MORE [RAD] Stat Exams 05/15/17 Ordered CBC/PLATELET/DIFF Stat Lab 05/15/17 11:49 Ordered CMP Stat Lab 05/15/17 11:49 Ordered PT-INR Stat Lab 05/15/17 Ordered UA W/MICRO IF INDICATED Stat Lab 05/15/17 11:49 Ordered General Adult Physical Exam - PHYSICAL EXAM GENERAL APPEARANCE: severe poor personal hygien EENT: eye inspection normal, pharynx normal, GERMAINE, dry mucous membranes. No: pharyngeal erythema RESPIRATORY: no resp distress, chest non-tender, breath sounds normal CVS: reg rate & rhythm, heart sounds normal, equal pulses, no murmur, no gallop , PMI nml, no JVD, no friction rub, 24 ABDOMEN: soft, no organomegaly, normal bowel sounds, no abdominal bruit, no distension SKIN: warm/dry, pallor EXTREMITIES: non-tender, normal range of motion, no evidence of injury, no edema , other (patient c/o left shoulder pain from fall. C/O right knee pain from fall ; right hand with contractures. ) NEURO: oriented X3, CN's nml as tested, motor nml, sensation nml, mood/affect nml, other (patient calm and cooperative at present) Discharge Clincal Impression: Effusion of shoulder joint, left, Impaired mobility and ADLs, Gait disturbance , Non compliance with medical treatment Fall from chair Qualifiers: Encounter type: initial encounter Qualified Code(s): W07.XXXA - Fall from chair , initial encounter Referrals: Shakeel Ellis MD [Primary Care Provider] - 2 Days Condition: Poor Disposition: 04 [facility] Decision to Admit: NO Decision Time: 16:30
[2017-05-15 13:02] LABS: BASOPHILS % 0.6 (0.0-1.5); EOSINOPHILS % 1.4 % (0.0-6.8); MEAN CORPUSCULAR HEMOGLOBIN 31.4 pg (28.0-34.0); MEAN CORPUSCULAR VOLUME 97.5 fl (80.0-100.0); MONOCYTES % 6.1 % (0.0-11.0); NEUTROPHILS # 7.6 # k/uL (1.4-7.7)
[2017-05-15 13:16] LABS: eGFR (African) > 60; eGFR (Non-African) > 60
--- NOTE | 2017-05-15 13:26 | Diagnostic Imaging Report ---
RC BENAVIDES ([place]) - [facility] [address] [facility] [address] Report Submission Date: May 15, 2017 12:59:59 PM EQUIPMENT ANALYST Patient Study Name: LIN MCCONNELL Date: May 15, 2017 12:19:15 PM EQUIPMENT ANALYST Modality Type: CR Gender: M Description: SHOULDER : 32 Institution: [facility] Physician: RC BENAVIDES) - ER Examination: Plain film left shoulder History: FALL; PAIN (Hx) / FALL; PAIN (DICOM Hx) / FALL; PAIN Comparison exams: None provided Findings: 3 views of the left shoulder demonstrates osteopenia. Articular degenerative changes with subchondral cyst formation. Faint lucency involving the region of the humeral neck. Osseous glenoid is without gross abnormality. No gross soft tissue abnormalities. Impression: Faint lucency involving the humeral neck - suggestive for a nondisplaced fracture line. Consider CT shoulder/extremity to better evaluate. Articular degenerative changes. Electronically signed on May 15, 2017 12:59:59 PM EQUIPMENT ANALYST by: Destin ARAYA
--- NOTE | 2017-05-15 13:27 | Diagnostic Imaging Report ---
RC BENAVIDES ([place]) - [facility] [address] [facility] [address] [address] Report Submission Date: May 15, 2017 12:55:23 PM MIXER BLENDER Patient Study Name: LIN MCCONNELL Date: May 15, 2017 12:28:59 PM MIXER BLENDER Modality Type: CR Gender: M Description: LOWER EXTREMITY : 32 Institution: [facility] Physician: RC BENAVIDES) - ER Examination: Plain film right knee History: PAIN; FALL (Hx) / PAIN AFTER FALL (DICOM Hx) / PAIN AFTER FALL Findings: 4 views of the right knee demonstrates osteopenia. Tibial spine, patellar, and medial/lateral ossific spurring. Joint space narrowing. Chondrocalcinosis. No evidence for cortical disruption or dislocation. Minimal degenerative lateral displacement of the patella. Posterior vascular calcifications. No joint effusion. Impression: Osteopenia and advanced degenerative changes. Chondrocalcinosis. No evidence for displaced fracture. Wall of Electronically signed on May 15, 2017 12:55:23 PM MIXER BLENDER by: Destin ARAYA
--- NOTE | 2017-05-15 14:36 | Diagnostic Imaging Report ---
RC BENAVIDES (THERESA) - ER [facility] [address] [facility] [address] [place], [place]. [address] Report Submission Date: May 15, 2017 2:25:09 PM AIRCRAFT MAINTENANCE SUPERVISOR Patient Study Name: LIN MCCONNELL Date: May 15, 2017 2:02:21 PM AIRCRAFT MAINTENANCE SUPERVISOR Modality Type: CT\SR Gender: M Description: CT ARM W/O CONTRAST : 32 Institution: [facility] Physician: RC BENAVIDES) - ER Examination: CT left upper extremity. History: FALL; LEFT SHOULDER PAIN; CT RECOMMENDED PER RADIOLOGIST (Hx) / PAIN AFTER FALL, FOLLOW UP XRAY (DICOM Hx) Comparison exams: Plain film dated 15 May 2017 Technique: Axial imaging with sagittal and coronal reconstruction. Findings: Extensive humeral head ossific spurring. Cortical margins appear to be intact without overt disruption. Margins of the osseous glenoid are also intact. Degenerative changes involving the acromioclavicular joint with inferior osteophytic spurring. No cortical disruption. Large fluid collection between the humeral head and the acromion. Remaining visualized soft tissue structures are without gross abnormality. Posterior lung atelectatic changes. Impression: Extensive humeral head degenerative changes however no evidence for displaced fracture. Degenerative changes of the acromioclavicular joint and osseous glenoid. Large joint effusion with likely rotator cuff injury. Electronically signed on May 15, 2017 2:25:09 PM AIRCRAFT MAINTENANCE SUPERVISOR by: Destin ARAYA
[2017-05-15 17:25] LABS: APPEARANCE,URINE CLOUDY (CLEAR); COLOR,URINE YELLOW (YELLOW); OCCULT BLOOD,URINE 2+ (NEGATIVE); UROBILINOGEN URINE 0.2 Eu (0.2-1.0)
== END 2017-05-15 16:38 ==
LOC: ED 11:28
DX: M25.412 Effusion, left shoulder (principal); R26.9 Unspecified abnormalities of gait and mobility; I26.99 Other pulmonary embolism without acute cor pulmonale; Z79.01 Long term (current) use of anticoagulants; Z91.19 Patient's noncompliance with other medical treatment and regimen; W07.XXXA Fall from chair, initial encounter; Y92.009 Unspecified place in unspecified non-institutional (private) residence as the place of occurrence of the external cause; I50.9 Heart failure, unspecified
CPT/HCPCS: 73030; 73200; 73562; 80053; 81002; 85025; 85610; 87086; 99284

== ENCOUNTER 2017-07-20 16:01 | Emergency (ER) | payer OTHER ==
--- NOTE | 2017-07-20 16:10 | ED Physician Documentation ---
General Adult - HISTORIAN Historian: patient - HPI Stated Complaint: tachycardia Chief Complaint: General Adult Onset: other (unknown from ambulance and intermediate ) Timing: still present Severity: mild Further Comments: yes (per [facility] intermediate called and reported heart rate of 160 and fever. He is less alert than usual .) Last known Well Date: 07/20/17 Last Known Well Time: 08:00 Last known Well Code/Unknown Code: Unknown - ROS CONST: fever EYES/ENT: denies: sore throat, nasal drainage CVS/RESP: denies: chest pain, shortness of breath, cough GI/: denies: problems urinating, vomiting, nausea, diarrhea MS/SKIN/LYMPH: denies: rash NEURO/PSYCH: denies: headache, fainting, dizziness - PAST HX Past History: A-Fib, other (CHF , history of PE ) Surgeries/Procedures: other Immunizations: UTD Allergies/Adverse Reactions: Allergies Allergy/AdvReac Type Severity Reaction Status Date / Time prednisone Allergy Intermediate confusion Verified 05/15/17 11:39 Home Medications: Ambulatory Orders Medication Instructions Recorded Furosemide [Furosemide] 20 mg PO DAILY 04/29/16 Acetaminophen [Tylenol] 2 tab PO TID 05/15/17 Atorvastatin Calcium [Atorvastatin 10 mg PO DAILY 05/15/17 Calcium] Citalopram Hydrobromide 20 mg PO DAILY 05/15/17 [Citalopram HBr] Esomeprazole Magnesium [Nexium] 40 mg PO DAILY 05/15/17 Fluticasone Propionate [Flovent 50 mcg INH DAILY 05/15/17 Diskus] Loratadine [Alavert] 10 mg PO PRN PRN 05/15/17 Tamsulosin HCl [Flomax] 0.4 mg PO HS 05/15/17 Triamcinolone Acetonide 0.1% 80 gm TOP PRN PRN 05/15/17 [Kenalog 0.1% cream] Warfarin Sodium [Coumadin] 5 mg PO DAILY 05/15/17 - SOCIAL HX Smoking History: non-smoker Alcohol Use: none Drug Use: none - FAMILY HX Family History: No - VITAL SIGNS Vital Signs: Vital Signs Temp Pulse Resp BP Pulse Ox 134/66 05/15/17 16:38 - REVIEWED ASSESSMENTS Nursing Assessment Reviewed: Yes Vitals Reviewed: Yes Progress - Progress Progress: 1745: [facility] accepting Dr Santoyo . Requesting discontinue of cardizem due to heart failure and addition of beta prince (med recommended is not on formulary here) and he is also requesting IV lasix to be given DG ED Results Lab/Radiology - Radiology Radiology Impressions: Ap portable upright radiographs of the chest Clinical history: Shortness of breath Technique: anterior /posterior portable upright Findings: Cardiomegaly and pulmonary vascular congestion are present. Bibasilar infiltrates are present. The aortic arch calcification. Arthritic changes are present in the shoulders and bilateral chronic rotator cuff tears are suspected. Impression: Congestive heart failure and pulmonary edema Aortic atherosclerosis Electronically signed on Jul 20, 2017 4:58:01 PM CDT by: Jose J Robledo General Adult Physical Exam - PHYSICAL EXAM GENERAL APPEARANCE: mild distress EENT: ENT inspection normal NECK: normal inspection RESPIRATORY: wheezes, rhonchi CVS: tachycardia. No: murmur ABDOMEN: soft, non-tender BACK: normal inspection SKIN: warm/dry, normal color EXTREMITIES: non-tender NEURO: mood/affect nml, disoriented Discharge Clincal Impression: Atrial fibrillation Qualifiers: Atrial fibrillation type: unspecified Qualified Code(s): I48.91 - Unspecified atrial fibrillation Referrals: Shakeel Ellis MD [Primary Care Provider] - 2 Days Additional Instructions: [facility] Dr Santoyo accepting [id number] DG [id number]: Rene Lawson [facility] Power of Assistant Manager Of Operations ok with transfer with [facility] Disposition: 09 ADMITTED INPATIENT Decision to Admit: NO Date of Decison to Admit: 07/20/17 Decision Time: 17:45
[2017-07-20] MEDS ORDERED: DILTIAZEM HCL 25 MG/ 5ML VIAL ONE (16:23)
[2017-07-20] MEDS: DILTIAZEM HCL 25 MG/ 5ML VIAL IVP ONE ×2 (16:24→16:34)
[2017-07-20 16:37] LABS: BASOPHILS % 0.3 (0.0-1.5); EOSINOPHILS % 0.1 % (0.0-6.8); MEAN CORPUSCULAR HEMOGLOBIN 31.1 pg (28.0-34.0); MEAN CORPUSCULAR VOLUME 94.4 fl (80.0-100.0); MONOCYTES % 4.7 % (0.0-11.0); NEUTROPHILS # 10.2 # k/uL (1.4-7.7)
[2017-07-20] MEDS ORDERED: DILTIAZEM HCL 125 MG/25ML VIAL ONE ×2 (16:40→16:44)
[2017-07-20 17:04] LABS: eGFR (African) > 60; eGFR (Non-African) > 60
[2017-07-20] MEDS ORDERED: FUROSEMIDE 20 MG/2 ML VIAL ONE (17:46)
[2017-07-20] MEDS: METOPROLOL TARTRATE 5 MG/5 ML VIAL IVP ONE ×2 (17:46→18:18)
[2017-07-20 18:36] VITALS: BP 105/69
--- NOTE | 2017-07-21 08:15 | Diagnostic Imaging Report ---
ROSALIO DURBIN [facility] [address] [facility] [address] [place], [place]. [address] Report Submission Date: Jul 20, 2017 4:58:01 PM CDT Patient Study Name: LIN MCCONNELL Date: Jul 20, 2017 4:40:52 PM CDT Modality Type: DX Gender: M Description: CHEST : 32 Institution: [facility] Physician: ROSALIO DURBIN Ap portable upright radiographs of the chest Clinical history: Shortness of breath Technique: anterior /posterior portable upright Findings: Cardiomegaly and pulmonary vascular congestion are present. Bibasilar infiltrates are present. The aortic arch calcification. Arthritic changes are present in the shoulders and bilateral chronic rotator cuff tears are suspected. Impression: Congestive heart failure and pulmonary edema Aortic atherosclerosis Electronically signed on Jul 20, 2017 4:58:01 PM CDT by: Jose J ARAYA
== END 2017-07-20 18:30 | disposition other institution (70) ==
LOC: ED 16:01
DX: I48.91 Unspecified atrial fibrillation (principal)
CPT/HCPCS: 71045; 80053; 82550; 82553; 83880; 84484; 85025; 85379; 85610; 93005; J1940; J3490; 96374; 96375; 99283